=== PATIENT | male | born 1955 | race Caucasian/White ===

== ENCOUNTER 2020-05-22 12:47 | Inpatient (IN) ==
[2020-05-22] MEDS ORDERED: DILTIAZEM 25 MG/5 ML VIAL IV ONE ×2 (12:54→17:24)
--- NOTE | 2020-05-22 13:06 | Emergency Department Note ---
Arrhythmia/Palpitations HPI General Chief Complaint: Arrhythmia/Palpitations Stated Complaint: SOB, tachycardia, dizziness Time Seen by Provider: 05/22/20 13:02 Source: patient Mode of arrival: wheelchair Limitations: no limitations History of Present Illness HPI Narrative: Narrative: 64-year old patient presenting to the emergency department the chief complaint of palpitations. Patient describes the palpitations as rapid fluttering in the chest. Patient does have history of irregular heartbeats in the past as well as coronary artery disease. These episodes occur at random, with rapid onset and termination. Patient was assessed for associated symptoms such as dizziness, presyncope, syncope- pt did not have these symptoms; pt did have a feeling of anxiety, current medications were reviewed including potentially illicit substances. Related Data Home Medications Medication Instructions Recorded Confirmed aspirin 81 mg tablet,delayed 81 mg PO QDAY 01/07/17 05/22/20 release cholecalciferol (vitamin D3) 25 1,000 unit PO QDAY 08/10/18 05/22/20 mcg (1,000 unit) capsule Previous Rx's Medication Instructions Recorded insulin syringe-needle U-100 1 mL #100 each 04/15/17 31 gauge x /" carvedilol 3.125 mg tablet 3.125 mg PO BID #180 tab 04/20/19 pen needle, diabetic 32 gauge x #200 each 11/19/19" blood sugar diagnostic #100 each 12/22/19 metformin 1,000 mg tablet 1,000 mg PO BID #180 tab 01/09/20 insulin glargine 100 unit/mL (3 25 unit SUB-Q BID #45 ml 01/23/20 mL) subcutaneous pen atorvastatin 20 mg tablet 20 mg PO QDAY #90 tab 03/15/20 clopidogrel 75 mg tablet 75 mg PO QDAY #90 tab 03/15/20 lisinopril 5 mg tablet 5 mg PO QDAY #30 tab 05/11/20 Allergies Allergy/AdvReac Type Severity Reaction Status Date / Time No Known Drug Allergies Allergy Verified 05/22/20 12:08 Review of Systems ROS ROS Narrative: Narrative: All systems ED: reviewed and negative except as stated. [facility] Narrative Patient History Narrative: Narrative: Medical/Surgical/Family History All Active Problems (Updated 05/23/20 @ 04:07 by Vaibhav Salinas MD) Pneumonia (Acute) Atrial fibrillation with rapid ventricular response (Acute) Respiratory distress (Acute) Tachycardia (Acute) Chronic lumbar pain (Acute) Obesity (BMI 30-39.9) (Chronic) Right shoulder pain (Acute) Orthopnea (Acute) Coronary artery disease (Chronic) Healthcare maintenance (Chronic) Tobacco abuse (Chronic) Hyperlipidemia (Chronic) Hypertension, essential (Chronic) Irregular heart beat (Chronic) DMII (diabetes mellitus, type 2) (Chronic) Medical History (Updated 05/23/20 @ 04:07 by Vaibhav Salinas MD) Coronary artery disease (Chronic) DMII (diabetes mellitus, type 2) (Chronic) Hyperlipidemia (Chronic) Hypertension, essential (Chronic) Irregular heart beat (Chronic) Respiratory distress (Acute) Tachycardia (Acute) Tobacco abuse (Chronic) Surgical History No pertinent past surgical history (Chronic) Family History Mother Arthritis Diabetes Hypertension, essential Father Arthritis Diabetes Hypertension, essential Sister Arthritis Uterine cancer Diabetes Grandmother Cancer Maternal Grandmother Arthritis Paternal Family/Other Brain cancer Uncle Brother Diabetes Heart attack CHF (congestive heart failure) Social History Smoking Status: Current every day smoker Alcohol Intake Frequency: does not drink Substance Use: does not use Exam Narrative Narrative: Narrative: General: Alert, interactive, appropriate Head: Atraumatic, normocephalic Eyes: Extraocular movements intact, sclera anicteric, no conjunctival injection Ears: Pinnae normal, no discharge Mouth: Oral mucosa moist, no acute swelling or evidence of infection Nares: No nasal discharge, patent bilaterally Neck: Trachea midline, full range of motion Chest: Symmetrical chest wall rise, breathing normally; nonlabored respirations Cardiovascular: Patient with excellent perfusion to the extremities, patient was with tachycardia Skin: Patient without area of erythema, patient is without rash, no ascending lymphangitis or lymphadenopathy Extremities: Full range of motion joints, no obvious deformities Neuro: Alert, oriented x3, cranial nerves II through XII grossly intact, patient without lateralizing findings such as weakness, or abnormal reflexes Psychiatric: Normal affect, normal mood General Limitations: no limitations Course Vital Signs Vital signs: Vital Signs Pulse Rate 157 H 05/22/20 12:48 Respiratory Rate 26 H 05/22/20 12:48 Blood Pressure 172/120 05/22/20 12:48 Pulse Oximetry (%) 92 05/22/20 12:48 Temperature 97.7 F 05/23/20 00:02 Pulse Rate 64 05/23/20 02:42 Respiratory Rate 17 05/23/20 02:42 Blood Pressure 140/83 05/23/20 02:00 Pulse Oximetry (%) 96 05/23/20 02:42 MDM MDM Narrative Medical decision making narrative: Narrative: Differential diagnosis considered in this case includes cardiac arrhythmia, cardiomyopathy, panic attacks/anxiety disorder, medication reaction, hypoglycemia, thyrotoxicosis, pheochromocytoma, anemia, and fever. Evaluation included basic laboratories and consideration for potential thyroid evaluation. EKG was obtained also chest x-ray. Holter monitor was considered in the evaluation of this patient. AV chantel reentrant tachycardia, AV reentrant tachycardia, Atrial tachycardia, Inappropriate sinus tachycardia, Sinoatrial chantel reentrant tachycardia, Intraatrial reentrant tachycardia, Junctional ectopic tachycardia, Nonparoxysmal junctional tachycardia, Atrial fibrillation, Atrial flutter, Multifocal AT were considered in the case as this was narrow complex tachycardia. Patient noted to have rate of 155 indeterminate rhythm on initial EKG plan on presentation is to provide 20 mg Cardizem IV patient with significant elevation of his blood pressure as well so he will tolerate the medicine great. Patient in sinus after Cardizem was provided IV. Further evaluation did demonstrate patient had bilateral pneumonia. Patient without significant elevation of his WBC 12.9. Lactate, IVF, Rocephin provided. Patient noted to be hypoxic into the high 80s provided with nasal cannula 2 L. Patient excellent control of his blood sugar also his electrolytes were all normal. Patient without recurrence of his arrhythmia during stay in the emergency department. Discussed the case with Dr. Johnson and the consensus medical opinion is to admit to the hospital. Lab Data Result diagrams: 05/22/20 13:29 05/22/20 13:29 Labs: Lab Results 05/22/20 05/22/20 05/22/20 Range/Units 13:27 13:29 13:29 WBC 12.9 H (4.5-11.0) K/mcL RBC 5.36 (4.50-5.90) M/mcL Hgb 15.4 (13.5-16.5) g/dL Hct 48.4 (41.0-55.0) % MCV 90.3 (80.0-100.0) fL MCH 28.7 (26.0-34.0) pg MCHC 31.8 (31.0-36.0) g/dL RDW 14.0 (11.5-14.5) % Plt Count 333 (140-440) K/mcL MPV 10.8 H (7.4-10.4) fL Neut % (Auto) 63.0 (38.0-78.0) % Lymph % (Auto) 26.3 (15.0-49.0) % [place]ha % (Auto) 7.6 (1.0-12.0) % Eos % (Auto) 2.7 (0.0-7.0) % Baso % (Auto) 0.4 (0.0-2.0) % Lymph # (Auto) 3.40 (1.50-4.80) K/mcL [place]ha # (Auto) 0.98 H (0.10-0.90) K/mcL Eos # (Auto) 0.35 (0.00-0.70) K/mcL Baso # (Auto) 0.05 (0.00-0.20) K/mcL Absolute Neutrophils 8.14 H (1.80-8.00) K/mcL PT 11.9 (11.9-14.5) sec INR 0.8 L (0.9-1.1) VBG Lactic Acid 2.0 (0.5-2.0) mmol/L Sodium (133-145) mmol/L Potassium (3.3-5.1) mmol/L Chloride (96-108) mmol/L Carbon Dioxide (22-30) mmol/L Anion Gap (8.0-16.0) BUN (8-23) mg/dL Creatinine (0.7-1.2) mg/dL GFR Calculation Glucose (70-105) mg/dL Calcium (8.6-10.4) mg/dL Total Bilirubin (0.1-1.0) mg/dL AST (<40) U/L ALT (<40) U/L Alkaline Phosphatase (39-117) U/L Troponin T (<0.03) ng/mL NT-Pro-B Natriuret Pep (<125.0) pg/mL Total Protein (5.9-8.4) gm/dL Albumin (3.2-5.2) gm/dL Globulin (2.2-3.7) gm/dL Albumin/Globulin Ratio (1.0-2.3) SARS-CoV-2 (PCR) (Negative) 05/22/20 05/22/20 05/22/20 Range/Units 13:29 13:29 13:58 WBC (4.5-11.0) K/mcL RBC (4.50-5.90) M/mcL Hgb (13.5-16.5) g/dL Hct (41.0-55.0) % MCV (80.0-100.0) fL MCH (26.0-34.0) pg MCHC (31.0-36.0) g/dL RDW (11.5-14.5) % Plt Count (140-440) K/mcL MPV (7.4-10.4) fL Neut % (Auto) (38.0-78.0) % Lymph % (Auto) (15.0-49.0) % Desha % (Auto) (1.0-12.0) % Eos % (Auto) (0.0-7.0) % Baso % (Auto) (0.0-2.0) % Lymph # (Auto) (1.50-4.80) K/mcL [place]ha # (Auto) (0.10-0.90) K/mcL Eos # (Auto) (0.00-0.70) K/mcL Baso # (Auto) (0.00-0.20) K/mcL Absolute Neutrophils (1.80-8.00) K/mcL PT (11.9-14.5) sec INR (0.9-1.1) VBG Lactic Acid (0.5-2.0) mmol/L Sodium 138 (133-145) mmol/L Potassium 4.5 (3.3-5.1) mmol/L Chloride 100 (96-108) mmol/L Carbon Dioxide 25 (22-30) mmol/L Anion Gap 13.0 (8.0-16.0) BUN 13 (8-23) mg/dL Creatinine 1.1 (0.7-1.2) mg/dL GFR Calculation 70 Glucose 89 (70-105) mg/dL Calcium 9.3 (8.6-10.4) mg/dL Total Bilirubin 0.3 (0.1-1.0) mg/dL AST 19 (<40) U/L ALT 18 (<40) U/L Alkaline Phosphatase 103 (39-117) U/L Troponin T < 0.01 (<0.03) ng/mL NT-Pro-B Natriuret Pep 678.1 H (<125.0) pg/mL Total Protein 7.4 (5.9-8.4) gm/dL Albumin 3.9 (3.2-5.2) gm/dL Globulin 3.5 (2.2-3.7) gm/dL Albumin/Globulin Ratio 1.1 (1.0-2.3) SARS-CoV-2 (PCR) Negative (Negative) Discharge Plan Patient/Caregiver Discharge Instructions Pt seen by PROJECT MANAGER/PA only: No Clinical Impression: Pneumonia, Atrial fibrillation with rapid ventricular response Patient Disposition: Xfer As Inpt ([facility]) Condition: Fair Discharge Date/Time: 05/22/20 18:50
--- NOTE | 2020-05-22 13:38 | XRay Report ---
HISTORY: Shortness of breath, tachycardia, dizziness and prior heart attack FINDINGS: Mild alveolar infiltrates are present in both lower lobes, right greater than left. This partially surrounds the john. Lung volumes are normal. There is no lobar consolidation or pleural effusion. The heart size is normal. There is no pulmonary vascular congestion. IMPRESSION: Mild bilateral pneumonia Interpreted and Authenticated by: Margarito Galvan 05/22/20
[2020-05-22 14:06] LABS: Basophils # (Auto) 0.05 K/mcL (0.00-0.20); Basophils % (Auto) 0.4 % (0.0-2.0); Eosinophils # (Auto) 0.35 K/mcL (0.00-0.70); Eosinophils % (Auto) 2.7 % (0.0-7.0); Hematocrit 48.4 % (41.0-55.0); Hemoglobin 15.4 g/dL (13.5-16.5); Lymphocytes % (Auto) 26.3 % (15.0-49.0); Mean Cell Volume 90.3 fL (80.0-100.0); Mean Corpuscular HGB Conc 31.8 g/dL (31.0-36.0); Mean Platelet Volume 10.8 fL (7.4-10.4); Monocytes # (Auto) 0.98 K/mcL (0.10-0.90); Monocytes % (Auto) 7.6 % (1.0-12.0); Platelet Count 333 K/mcL (140-440); RBC 5.36 M/mcL (4.50-5.90); WBC 12.9 K/mcL (4.5-11.0)
[2020-05-22 14:32] LABS: proBNP 678.1 pg/mL (<125.0)
[2020-05-22 14:34] LABS: ALT/SGPT 18 U/L (<40); AST/SGOT 19 U/L (<40); Albumin 3.9 gm/dL (3.2-5.2); Albumin/Globulin Ratio 1.1 (1.0-2.3); Alkaline Phosphatase 103 U/L (39-117); Bilirubin,Total 0.3 mg/dL (0.1-1.0); Blood Urea Nitrogen 13 mg/dL (8-23); Calcium 9.3 mg/dL (8.6-10.4); Carbon Dioxide 25 mmol/L (22-30); Chloride 100 mmol/L (96-108); Globulin 3.5 gm/dL (2.2-3.7); Glomerular Filtration Rate 70; Glucose 89 mg/dL (70-105)
[2020-05-22 14:35] LABS: INR 0.8 (0.9-1.1); Prothrombin Time 11.9 sec (11.9-14.5)
[2020-05-22] MEDS ORDERED: cefTRIAXone 2 GM VIAL IV ONE (15:13)
[2020-05-22] MEDS ORDERED: 0.9 % SODIUM CHLORIDE 1,000 ML IV ONE (15:13)
--- NOTE | 2020-05-22 16:12 | Internal Med History&Physical ---
HPI History of Present Illness Patient information: Note initiated : 05/22/20 at 4:12 pm Service Date, if different from initiated Date: [] Patient: Adina Guerrero a 64 y/o M admitted on for SOB, Tachycardia, Dizziness. Chief Complaint: Shortness of breath, cough weakness History of present illness: Mr. Guerrero is a 64 year old M with a history of half pack a day smoker/CAD/DM type II/HTN/A. fib who presents to the ER with 2 days onset of worsening shortness of breath/cough and generalized malaise and palpitations. Symptoms have progressed limiting patient's ADLs. With profound weakness and malaise he presents to the ER Initial work-up was consistent with A. fib RVR with heart rate around 150s/chest imaging bilateral pneumonia and elevated white count. Patient was started on diltiazem with improvement in tachycardia to 100. Patient was started on antibiotic coverage. Covid negative. Subsequently hospitalist service was consulted for admission. At the time of evaluation patient is alert but in moderate discomfort from shortness of breath. He is currently on 2 L oxygen. He was able to answer most of the questions. He denies exposure to sick contact but endorses to symptoms above. Denies headache, photophobia, chest pain, dysuria, diarrhea. He further denies rash/neck stiffness, myalgias. He further denies shaking chills Review of systems 10 point review system was performed and is negative except for ones discussed above PFSH PFSH All Active Problems (Updated 05/23/20 @ 04:07 by Vaibhav Salinas MD) Pneumonia (Acute) Atrial fibrillation with rapid ventricular response (Acute) Respiratory distress (Acute) Tachycardia (Acute) Chronic lumbar pain (Acute) Obesity (BMI 30-39.9) (Chronic) Right shoulder pain (Acute) Orthopnea (Acute) Coronary artery disease (Chronic) Healthcare maintenance (Chronic) Tobacco abuse (Chronic) Hyperlipidemia (Chronic) Hypertension, essential (Chronic) Irregular heart beat (Chronic) DMII (diabetes mellitus, type 2) (Chronic) Medical History (Updated 05/23/20 @ 04:07 by Vaibhav Salinas MD) Coronary artery disease (Chronic) DMII (diabetes mellitus, type 2) (Chronic) Hyperlipidemia (Chronic) Hypertension, essential (Chronic) Irregular heart beat (Chronic) Respiratory distress (Acute) Tachycardia (Acute) Tobacco abuse (Chronic) Surgical History No pertinent past surgical history (Chronic) Family History Mother Arthritis Diabetes Hypertension, essential Father Arthritis Diabetes Hypertension, essential Sister Arthritis Uterine cancer Diabetes Grandmother Cancer Maternal Grandmother Arthritis Paternal Family/Other Brain cancer Uncle Brother Diabetes Heart attack CHF (congestive heart failure) Social History marital status: single smoking status: Current every day smoker tobacco type: cigarettes alcohol intake frequency: does not drink substance use type: does not use MEDS/ALLERGIES Home Medications and Allergies Home Medications Medication Instructions Recorded Confirmed Type aspirin 81 mg tablet,delayed 81 mg PO QDAY 01/07/17 05/22/20 History release insulin syringe-needle U-100 1 mL #100 each 04/15/17 05/22/20 Rx 31 gauge x 5/16" cholecalciferol (vitamin D3) 25 1,000 unit PO QDAY 08/10/18 05/22/20 History mcg (1,000 unit) capsule carvedilol 3.125 mg tablet 3.125 mg PO BID #180 tab 04/20/19 05/22/20 Rx pen needle, diabetic 32 gauge x #200 each 11/19/19 05/22/20 Rx 5/32" blood sugar diagnostic #100 each 12/22/19 05/22/20 Rx metformin 1,000 mg tablet 1,000 mg PO BID #180 tab 01/09/20 05/22/20 Rx insulin glargine 100 unit/mL (3 25 unit SUB-Q BID #45 ml 01/23/20 05/22/20 Rx mL) subcutaneous pen atorvastatin 20 mg tablet 20 mg PO QDAY #90 tab 03/15/20 05/22/20 Rx clopidogrel 75 mg tablet 75 mg PO QDAY #90 tab 03/15/20 05/22/20 Rx lisinopril 5 mg tablet 5 mg PO QDAY #30 tab 05/11/20 05/22/20 Rx Allergies Allergy/AdvReac Type Severity Reaction Status Date / Time No Known Drug Allergies Allergy Verified 05/22/20 12:08 EXAM Constitutional Vitals: Alert oriented but anxious Head normocephalic Oral cavity moist No ear nose discharge Eye movement symmetrical Neck supple no lymphadenopathy S1-S2 irregular Minimally labored breathing on 2 L oxygen Nondistended nontender abdomen Lower extremity minimal lymphedema, no cyanosis clubbing or joint swelling Skin no suspicious lesion Psych no hallucination Neuro normal higher function Pulse Resp BP Pulse Ox 70 28 H 118/81 98 05/22/20 15:31 05/22/20 16:10 05/22/20 15:31 05/22/20 15:31 DATA Data Completed and Pending Labs: Labs from last 24 hours 05/22/20 05/22/20 05/22/20 13:58 13:29 13:29 WBC RBC Hgb Hct MCV MCH MCHC RDW Plt Count MPV Neut % (Auto) Lymph % (Auto) [place] % (Auto) Eos % (Auto) Baso % (Auto) Lymph # (Auto) [place] # (Auto) Eos # (Auto) Baso # (Auto) Absolute Neutrophils PT INR VBG Lactic Acid Sodium 138 Potassium 4.5 Chloride 100 Carbon Dioxide 25 Anion Gap 13.0 BUN 13 Creatinine 1.1 GFR Calculation 70 Glucose 89 Calcium 9.3 Total Bilirubin 0.3 AST 19 ALT 18 Alkaline Phosphatase 103 Troponin T < 0.01 NT-Pro-B Natriuret Pep 678.1 H Total Protein 7.4 Albumin 3.9 Globulin 3.5 Albumin/Globulin Ratio 1.1 SARS-CoV-2 (PCR) Negative 05/22/20 05/22/20 05/22/20 13:29 13:29 13:27 WBC 12.9 H RBC 5.36 Hgb 15.4 Hct 48.4 MCV 90.3 MCH 28.7 MCHC 31.8 RDW 14.0 Plt Count 333 MPV 10.8 H Neut % (Auto) 63.0 Lymph % (Auto) 26.3 [place] % (Auto) 7.6 Eos % (Auto) 2.7 Baso % (Auto) 0.4 Lymph # (Auto) 3.40 [place] # (Auto) 0.98 H Eos # (Auto) 0.35 Baso # (Auto) 0.05 Absolute Neutrophils 8.14 H PT 11.9 INR 0.8 L VBG Lactic Acid 2.0 Sodium Potassium Chloride Carbon Dioxide Anion Gap BUN Creatinine GFR Calculation Glucose Calcium Total Bilirubin AST ALT Alkaline Phosphatase Troponin T NT-Pro-B Natriuret Pep Total Protein Albumin Globulin Albumin/Globulin Ratio SARS-CoV-2 (PCR) A/P Narrative A/P Narrative: * Acute hypoxic respiratory failure secondary to bilateral pneumonia. Supplemental oxygen/pulmonary toilet/aspiration precaution * Bilateral lower lobe pneumonia community-acquired versus aspiration. COVID- 19 negative. Empiric antibiotics on Rocephin/Zithromax. Aspiration precautions/ST eval * Sepsis secondary to above with leukocytosis at 12.9/endorgan dysfunction including A. fib RVR. Continue management per guidelines. Pancultures. * History of hypertension hold RAFFI inhibitor's, continue Coreg with holding parameters. * History of CAD continue Plavix/aspirin/statin/Coreg * DM type II continue basal prandial insulin/CC diet * History of tobacco dependence-nicotine patch/counseled for cessation * Prophylaxis Lovenox Plan * Inpatient PCU admission * Supplemental oxygen/noninvasive ventilation support if indicated * Serial imaging/ABG * Broad antibiotic coverage * Sepsis management guidelines * Cardizem drip for rate control * Pre-existing medical condition management home medications * PT OT nutrition support * Discharge Time Spent With Patient Time: Total time spent is greater than 50% in coordination of care (as documented) at patient's floor/unit and/or counseling patient:
[2020-05-22] MEDS ORDERED: BISACODYL 10 MG SUPP.RECT PR PRN (18:50)
[2020-05-22] MEDS ORDERED: POLYETHYLENE GLYCOL 3350 17 GM PACKET PO PRN (18:50)
[2020-05-22] MEDS ORDERED: DEXTROSE 50% 50 ML VIAL IV PRN (18:50)
[2020-05-22] MEDS ORDERED: POTASSIUM CHLORIDE 20 MEQ PACKET PO PRN (18:50)
[2020-05-22] MEDS ORDERED: POTASSIUM CHLORIDE 40 MEQ in DEXTROSE 5% IN WATER 500 ML IV PRN (18:50)
[2020-05-22] MEDS ORDERED: ACETAMINOPHEN 650 MG/65 ML BOTTLE IV PRN (18:50)
[2020-05-22] MEDS ORDERED: ONDANSETRON 4 MG ODT TABLET SL PRN (18:50)
[2020-05-22] MEDS ORDERED: ACETAMINOPHEN 325 MG TABLET PO PRN (18:50)
[2020-05-22] MEDS ORDERED: MELATONIN 3 MG TABLET PO PRN (18:50)
[2020-05-22] MEDS ORDERED: ONDANSETRON 4 MG/2 ML VIAL IV PRN (18:50)
[2020-05-22] MEDS ORDERED: MAGNESIUM SULFATE 2 GM/50 ML BAG IV PRN (18:50)
[2020-05-22] MEDS ORDERED: DEXTROSE 31 GM ORAL.SUSP PO PRN (18:50)
[2020-05-22] MEDS ORDERED: DILTIAZEM 125 MG in 0.9 % SODIUM CHLORIDE 100 ML IV PRN (19:00)
[2020-05-22] MEDS: INSULIN LISPRO 1 UNIT/0.01 ML UNIT SQ SCH ×2 (19:35→20:02)
[2020-05-22] MEDS: SENNOSIDES/DOCUSATE SODIUM 1 TAB TABLET PO SCH ×2 (20:01→20:17)
[2020-05-22] MEDS: CARVEDILOL 3.125 MG TABLET PO SCH (20:01)
[2020-05-22] MEDS: metFORMIN 500 MG TABLET PO SCH (20:01)
[2020-05-22] MEDS: DOCUSATE SODIUM 100 MG CAPSULE PO SCH ×2 (20:02→20:16)
[2020-05-22] MEDS: INSULIN GLARGINE, HUMAN 1 UNIT/0.01 ML SQ SCH (20:02)
[2020-05-22] MEDS: AZITHROMYCIN 500 MG in DEXTROSE 5% IN WATER 250 ML IV SCH (20:02)
[2020-05-22] MEDS ORDERED: AMIODARONE 150 MG in DEXTROSE 5% IN WATER 50 ML IV ONE (20:34)
[2020-05-22] MEDS ORDERED: AMIODARONE 150 MG/3 ML VIAL IV ONE (20:57)
[2020-05-22 22:23] LABS: Appearance,Urine CLEAR (Clear); Bilirubin,Urine Negative (Negative); Color,Urine YELLOW; Culture Indicated,Urine No; Glucose,Urine (UA) Negative (Negative); Ketones,Urine Negative (Negative); Leukocyte Esterase,Urine Negative /ug (Negative); Mucus,Urine FEW /hpf; Nitrate,Urine Negative (Negative); Protein,Urine >=500 mg/dL (Negative); Specific Gravity,Urine 1.017 (1.000-1.035); Urine Blood Negative (Negative); Urine RBC 0 /hpf (0-1); Urine Squamous Epithelial Cell < 1 /hpf (0-4); Urine WBC 1 /hpf (0-4); Urobilinogen,Urine Negative
[2020-05-22] MEDS: 0.9 % SODIUM CHLORIDE 10 ML SYRINGE IV SCH (22:23)
[2020-05-23] MEDS: 0.9 % SODIUM CHLORIDE 10 ML SYRINGE IV SCH ×3 (05:55→21:11)
[2020-05-23 06:32] LABS: Basophils # (Auto) 0.05 K/mcL (0.00-0.20); Basophils % (Auto) 0.5 % (0.0-2.0); Eosinophils % (Auto) 2.9 % (0.0-7.0); Hematocrit 42.5 % (41.0-55.0); Hemoglobin 13.2 g/dL (13.5-16.5); Lymphocytes # (Auto) 3.25 K/mcL (1.50-4.80); Mean Cell Volume 92.2 fL (80.0-100.0); Mean Corpuscular HGB Conc 31.1 g/dL (31.0-36.0); Mean Platelet Volume 10.8 fL (7.4-10.4); Monocytes # (Auto) 0.94 K/mcL (0.10-0.90); Neutrophils % (Auto) 56.6 % (38.0-78.0); Platelet Count 257 K/mcL (140-440); RBC 4.61 M/mcL (4.50-5.90); Red Cell Distribution Width 14.3 % (11.5-14.5); WBC 10.5 K/mcL (4.5-11.0)
[2020-05-23] MEDS: INSULIN LISPRO 1 UNIT/0.01 ML UNIT SQ SCH ×4 (07:34→21:01)
[2020-05-23 07:41] LABS: ALT/SGPT 15 U/L (<40); AST/SGOT 17 U/L (<40); Albumin 3.4 gm/dL (3.2-5.2); Albumin/Globulin Ratio 1.1 (1.0-2.3); Alkaline Phosphatase 85 U/L (39-117); Bilirubin,Direct < 0.2 mg/dL (<0.3); Bilirubin,Total 0.3 mg/dL (0.1-1.0); Blood Urea Nitrogen 17 mg/dL (8-23); Calcium 8.7 mg/dL (8.6-10.4); Carbon Dioxide 22 mmol/L (22-30); Chloride 104 mmol/L (96-108); Globulin 3.1 gm/dL (2.2-3.7); Glomerular Filtration Rate 78; Glucose 77 mg/dL (70-105); Lactate Dehydrogenase 180 U/L (135-225); Phosphorous 4.5 mg/dL (2.5-4.5); Triglycerides 127 mg/dL (<150); Uric Acid 6.9 mg/dL (2.5-8.0)
[2020-05-23] MEDS: metFORMIN 500 MG TABLET PO SCH ×2 (07:54→17:35)
[2020-05-23] MEDS: CARVEDILOL 3.125 MG TABLET PO SCH ×2 (07:54→17:35)
[2020-05-23] MEDS: MAGNESIUM SULFATE 2 GM/50 ML BAG IV PRN (08:27)
[2020-05-23] MEDS ORDERED: AMIODARONE 360 MG in PREMIX 1 BAG IV SCH (08:30)
[2020-05-23] MEDS: ENOXAPARIN 40 MG/0.4 ML SYRINGE SQ SCH (08:59)
[2020-05-23] MEDS: sitaGLIPtin 100 MG TABLET PO SCH (09:00)
[2020-05-23] MEDS: CLOPIDOGREL 75 MG TABLET PO SCH (09:00)
[2020-05-23] MEDS: DOCUSATE SODIUM 100 MG CAPSULE PO SCH ×2 (09:00→21:01)
[2020-05-23] MEDS: ASPIRIN 81 MG TAB.CHEW PO SCH (09:00)
[2020-05-23] MEDS ORDERED: DEXAMETHASONE 4 MG TABLET PO SCH (09:00)
[2020-05-23] MEDS: ATORVASTATIN 20 MG TABLET PO SCH (09:00)
[2020-05-23] MEDS: VITAMIN D3 1,000 UNIT TABLET PO SCH (09:00)
[2020-05-23] MEDS: INSULIN GLARGINE, HUMAN 1 UNIT/0.01 ML SQ SCH ×2 (09:01→21:11)
[2020-05-23] MEDS: LISINOPRIL 5 MG TABLET PO SCH (09:16)
[2020-05-23] MEDS: cefTRIAXone 2 GM in DEXTROSE 5% IN WATER 50 ML IV SCH (09:51)
--- NOTE | 2020-05-23 10:50 | Internal Med Progress Note ---
SUBJECTIVE Subjective Patient information: Note initiated : 05/23/20 at 10:45 am Service Date, if different from initiated Date: [] Patient: Adina Guerrero 64 y/o M admitted on 05/22/20 for SOB, Tachycardia, Dizziness. Chief Complaint: Interval history: History of present illness: Mr. Guerrero is a 64 year old M with a history of half pack a day smoker/CAD/DM type II/HTN/A. fib who presents to the ER with 2 days onset of worsening shortness of breath/cough and generalized malaise and palpitations. Symptoms have progressed limiting patient's ADLs. With profound weakness and malaise he presents to the ER Initial work-up was consistent with A. fib RVR with heart rate around 150s/chest imaging bilateral pneumonia and elevated white count. Patient was started on diltiazem with improvement in tachycardia to 100. Patient was started on ant ibiotic coverage. Covid negative. Subsequently hospitalist service was consulted for admission. At the time of evaluation patient is alert but in moderate discomfort from shortness of breath. He is currently on 2 L oxygen. He was able to answer most of the questions. He denies exposure to sick contact but endorses to symptoms above. Denies headache, photophobia, chest pain, dysuria, diarrhea. He further denies rash/neck stiffness, myalgias. He further denies shaking chills Responded to nurse called with patient experiencing episodes of ventricular tachycardia. Patient was started on amiodarone. Denies diaphoresis, chest pain, headache or lightheadedness. Max rate 155. Responded well to amiodarone. Continue close monitoring. Following administration of amiodarone patient converted to sinus. Continue close ICU monitoring. Remains high risk recurrent V. tach. 05/23-patient did well overnight however recurrent runs of V. tach/wide-complex tachycardia. Complete amiodarone load. Covid negative. White count down from 12.9-10.5. On antibiotic coverage. Feeling better than last night. Denies chest pain diaphoresis. Creatinine 1. Bilateral pneumonia on chest imaging. Check troponins today. Reviewed EKG Constitutional Vitals: Vital Signs Temp Pulse Resp BP Pulse Ox 98.7 F 70 21 142/82 97 05/23/20 04:01 05/23/20 04:39 05/23/20 04:39 05/23/20 04:01 05/23/20 04:39 Period Temp Pulse Resp BP Sys/Walls Pulse Ox Last 24 Hr 97.3 F-98.7 F 64-158 13-29 116-172/67-120 89-100 Intake and Output 05/22/20 05/23/20 05/23/20 21:59 05:59 13:59 Intake Total 1000 Output Total 100 200 50 Balance 900 -200 -50 Weight 100.289 kg Alert and oriented No anxiety Nonlabored breathing Nondistended abdomen Telemetry wide-complex tachycardia Intake & Output: Intake & Output 05/22/20 05/23/20 05/23/20 21:59 05:59 13:59 Intake Total 1000 Output Total 100 200 50 Balance 900 -200 -50 Weight 100.289 kg Intake: IV 1000 Sodium Chloride 0.9% 1,000 ml @ 1000 Wide Open IV [facility] Rx#: [id number] Output: Urine Catheter Amount 200 Void Amount 100 50 Other: Urine Appearance Clear Clear Urine Color Light Aria Dark Yellow # Voids 1 OBJ DATA Labs CBC & Chem 7: 05/23/20 05:33 05/23/20 05:32 Labs: Abnormal Lab Results 05/23/20 05/22/20 05/22/20 05:33 21:12 13:29 WBC Hgb 13.2 L MPV 10.8 H [place] # (Auto) 0.94 H Absolute Neutrophils INR NT-Pro-B Natriuret Pep 678.1 H Urine Protein >=500 A Urine Mucus Few A 05/22/20 05/22/20 13:29 13:29 WBC 12.9 H Hgb MPV 10.8 H [place] # (Auto) 0.98 H Absolute Neutrophils 8.14 H INR 0.8 L NT-Pro-B Natriuret Pep Urine Protein Urine Mucus Meds: Medications Acetaminophen (Tylenol) 650 mg PO Q4-6HP PRN; Protocol PRN Reason: Per Pain Protocol/Fever > 101 Aspirin (Aspirin) 81 mg PO QDAY [facility] Last Admin: 05/23/20 09:00 Dose: 81 mg Documented by: Atorvastatin Calcium (Lipitor) 20 mg PO QDAY [facility] Last Admin: 05/23/20 09:00 Dose: 20 mg Documented by: Bisacodyl (Dulcolax) 10 mg [place] Q2-3DAYS PRN PRN Reason: Constipation Carvedilol (Coreg) 3.125 mg PO BIDCC [facility] Last Admin: 05/23/20 07:54 Dose: 3.125 mg Documented by: Clopidogrel Bisulfate (Plavix) 75 mg PO QDAY [facility] Last Admin: 05/23/20 09:00 Dose: 75 mg Documented by: Dextrose (Dextrose 50%) 0 ml IV UD PRN PRN Reason: Hypoglycemia Diagnostic Test (Pha) (Accu-Chek) 1 each FS ACHS [facility] Last Admin: 05/23/20 07:34 Dose: 1 each Documented by: Docusate Sodium (Colace) 100 mg PO BID [facility] Last Admin: 05/23/20 09:00 Dose: 100 mg Documented by: Enoxaparin Sodium (Lovenox) 40 mg SQ DAILY [facility] Last Admin: 05/23/20 08:59 Dose: 40 mg Documented by: Glucose (Insta-Glucose) 15 gm PO PRN PRN PRN Reason: Hypoglycemia Ceftriaxone Sodium 2 gm/ (Dextrose) 50 mls @ 100 mls/hr IV Q24H [facility]; Protocol Last Admin: 05/23/20 09:51 Dose: 100 mls/hr Documented by: Diltiazem HCl 125 mg/ Sodium (Chloride) 125 mls @ 5 mls/hr IV Q12H PRN; Protocol PRN Reason: HR/AFIB>130 Azithromycin 500 mg/ Dextrose 250 mls @ 250 mls/hr IV Q24H [facility]; Protocol Stop: 05/24/20 19:49 Last Admin: 05/22/20 20:02 Dose: 250 mls/hr Documented by: Potassium Chloride 40 meq/ (Dextrose) 520 mls @ 130 mls/hr IV UD PRN PRN Reason: K+ = or < 3.5 Acetaminophen (Ofirmev) 650 mg in 65 mls @ 130 mls/hr IV Q6HP PRN; Protocol PRN Reason: Per Pain Protocol/Fever > 101 Magnesium Sulfate (Magnesium Sulfate) 2 gm in 50 mls @ 50 mls/hr IV UD PRN PRN Reason: MG = or < 1.7 Last Admin: 05/23/20 08:27 Dose: 50 mls/hr Documented by: AMIODARONE 360 mg/ Premix 200 mls @ 33.333 mls/hr IV .Q6H [facility]; Protocol Stop: 05/23/20 14:29 Last Admin: 05/23/20 09:01 Dose: 1 mg/min, 33.333 mls/hr Documented by: AMIODARONE 360 mg/ Premix 200 mls @ 16.667 mls/hr IV .Q12H [facility]; Protocol Stop: 05/24/20 08:29 Insulin Glargine (Lantus) 25 unit SQ BID [facility] Last Admin: 05/23/20 09:01 Dose: 25 units Documented by: Insulin Human Lispro (Humalog) 0 unit SQ ACHS [facility]; Protocol Last Admin: 05/23/20 07:34 Dose: Not Given Documented by: Lisinopril (Zestril) 5 mg PO QDAY [facility] Last Admin: 05/23/20 09:16 Dose: Not Given Documented by: Melatonin (Melatonin 3mg Tablet) 3 mg PO HSP PRN PRN Reason: Insomnia Metformin HCl (Glucophage) 1,000 mg PO BIDCC [facility] Last Admin: 05/23/20 07:54 Dose: 1,000 mg Documented by: Metoprolol Tartrate (Lopressor) 5 mg IV Q5M PRN PRN Reason: Heart Rate > 140 bpm Ondansetron HCl (Zofran Odt) 4 mg SL Q4-6HP PRN; Protocol PRN Reason: Nausea And Vomiting Ondansetron HCl (Zofran) 4 mg IV Q4-6HP PRN; Protocol PRN Reason: Nausea And Vomiting Polyethylene Glycol (Miralax) 17 gm PO DAILYP PRN PRN Reason: Constipation Potassium Chloride (Klor-Con) 40 meq PO DAILYP PRN PRN Reason: K+ < 3.5 Senna/Docusate Sodium (Senna Plus Tablet) 1 tab PO HS [facility] Last Admin: 05/22/20 20:17 Dose: Not Given Documented by: Sitagliptin Phosphate (Januvia) 100 mg PO DAILY [facility] Last Admin: 05/23/20 09:00 Dose: 100 mg Documented by: Sodium Chloride (Saline Flush) 10 ml IV Q8 [facility] Last Admin: 05/23/20 05:55 Dose: 10 ml Documented by: Vitamin D (Vitamin D3) 1,000 unit PO QDAY [facility] Last Admin: 05/23/20 09:00 Dose: 1,000 unit Documented by: A/P Narrative A/P Narrative: * Acute hypoxic respiratory failure secondary to bilateral pneumonia. Cantu pplemental oxygen/pulmonary toilet/aspiration precaution * Bilateral lower lobe pneumonia community-acquired versus aspiration. COVID- 19 negative. Empiric antibiotics on Rocephin/Zithromax. Aspiration precautions/ST eval * Wide-complex tachycardia on amiodarone load. Check troponin/echocardiogram. * Sepsis secondary to above with leukocytosis at 12.9/endorgan dysfunction including A. fib RVR. Continue management per guidelines. Pancultures. * History of hypertension hold RAFFI inhibitor's, continue Coreg with holding parameters. * History of CAD continue Plavix/aspirin/statin/Coreg * DM type II continue basal prandial insulin/CC diet * History of tobacco dependence-nicotine patch/counseled for cessation * Prophylaxis Lovenox Plan * Amiodarone load/ICU care * Continue supplemental oxygen * Serial imaging/ABG * Troponin/echocardiogram * Broad antibiotic coverage * Pre-existing medical condition management home medications * PT OT nutrition support * Discharge planning Critical care time spent on management of V. tach/hypoxia respiratory failure/bilateral pneumonia in excess of 35 minutes Time Spent With Patient Time: Total time spent is greater than 50% in coordination of care (as documented) at patient's floor/unit and/or counseling patient: QUALITY VTE Deep Vein Thrombosis/Pulmonary Embolism Present on Admission: No
[2020-05-23] MEDS: AMIODARONE 360 MG in PREMIX 1 BAG IV SCH (15:00)
[2020-05-23] MEDS: AZITHROMYCIN 500 MG in DEXTROSE 5% IN WATER 250 ML IV SCH (15:00)
[2020-05-23] MEDS: SENNOSIDES/DOCUSATE SODIUM 1 TAB TABLET PO SCH (21:02)
[2020-05-24] MEDS: AMIODARONE 360 MG in PREMIX 1 BAG IV SCH (01:42)
[2020-05-24] MEDS: 0.9 % SODIUM CHLORIDE 10 ML SYRINGE IV SCH ×3 (05:22→21:40)
[2020-05-24 06:43] LABS: Basophils # (Auto) 0.05 K/mcL (0.00-0.20); Basophils % (Auto) 0.5 % (0.0-2.0); Eosinophils # (Auto) 0.36 K/mcL (0.00-0.70); Eosinophils % (Auto) 3.3 % (0.0-7.0); Hematocrit 41.8 % (41.0-55.0); Lymphocytes # (Auto) 3.04 K/mcL (1.50-4.80); Lymphocytes % (Auto) 28.1 % (15.0-49.0); Mean Cell Volume 93.5 fL (80.0-100.0); Mean Corpuscular HGB Conc 31.1 g/dL (31.0-36.0); Mean Platelet Volume 10.7 fL (7.4-10.4); Monocytes # (Auto) 0.94 K/mcL (0.10-0.90); Monocytes % (Auto) 8.7 % (1.0-12.0); Neutrophils % (Auto) 59.4 % (38.0-78.0); Platelet Count 271 K/mcL (140-440); RBC 4.47 M/mcL (4.50-5.90); Red Cell Distribution Width 14.3 % (11.5-14.5); WBC 10.8 K/mcL (4.5-11.0)
[2020-05-24 07:09] LABS: ALT/SGPT 14 U/L (<40); AST/SGOT 15 U/L (<40); Albumin 3.5 gm/dL (3.2-5.2); Albumin/Globulin Ratio 1.3 (1.0-2.3); Alkaline Phosphatase 79 U/L (39-117); Bilirubin,Direct < 0.2 mg/dL (<0.3); Bilirubin,Total 0.2 mg/dL (0.1-1.0); Blood Urea Nitrogen 20 mg/dL (8-23); Calcium 8.4 mg/dL (8.6-10.4); Carbon Dioxide 26 mmol/L (22-30); Chloride 101 mmol/L (96-108); Globulin 2.8 gm/dL (2.2-3.7); Glomerular Filtration Rate 63; Glucose 113 mg/dL (70-105); Lactate Dehydrogenase 158 U/L (135-225); Phosphorous 3.8 mg/dL (2.5-4.5); Triglycerides 122 mg/dL (<150)
[2020-05-24] MEDS: INSULIN LISPRO 1 UNIT/0.01 ML UNIT SQ SCH ×4 (07:58→21:41)
[2020-05-24] MEDS: CARVEDILOL 3.125 MG TABLET PO SCH ×2 (08:02→17:09)
[2020-05-24] MEDS: DOCUSATE SODIUM 100 MG CAPSULE PO SCH ×2 (08:02→21:42)
[2020-05-24] MEDS: ENOXAPARIN 40 MG/0.4 ML SYRINGE SQ SCH (08:02)
[2020-05-24] MEDS: cefTRIAXone 2 GM in DEXTROSE 5% IN WATER 50 ML IV SCH (08:02)
[2020-05-24] MEDS: INSULIN GLARGINE, HUMAN 1 UNIT/0.01 ML SQ SCH ×2 (08:03→21:39)
[2020-05-24] MEDS: ASPIRIN 81 MG TAB.CHEW PO SCH (08:03)
[2020-05-24] MEDS: CLOPIDOGREL 75 MG TABLET PO SCH (08:03)
[2020-05-24] MEDS: metFORMIN 500 MG TABLET PO SCH ×2 (08:03→17:09)
[2020-05-24] MEDS: VITAMIN D3 1,000 UNIT TABLET PO SCH (08:06)
[2020-05-24] MEDS: ATORVASTATIN 20 MG TABLET PO SCH (08:07)
[2020-05-24] MEDS: sitaGLIPtin 100 MG TABLET PO SCH (08:07)
[2020-05-24] MEDS: LISINOPRIL 5 MG TABLET PO SCH (08:14)
[2020-05-24] MEDS: MAGNESIUM SULFATE 2 GM/50 ML BAG IV PRN (09:00)
--- NOTE | 2020-05-24 09:00 | XRay Report ---
HISTORY: Shortness of breath, tachycardia and dizziness, follow-up pneumonia FINDINGS: Lungs are now clear and well expanded. The bilateral infiltrates seen on 05/22/20 have resolved. The rapid response be more consistent with that of pulmonary edema rather than pneumonia. The heart size is normal. There is no pulmonary vascular congestion or pleural effusion. IMPRESSION: Normal exam Interpreted and Authenticated by: Margarito Galvan 05/24/20
[2020-05-24] MEDS: AZITHROMYCIN 500 MG in DEXTROSE 5% IN WATER 250 ML IV SCH (09:41)
--- NOTE | 2020-05-24 11:02 | Internal Med Progress Note ---
SUBJECTIVE Subjective Patient information: Note initiated : 05/24/20 at 10:58 am Service Date, if different from initiated Date: [] Patient: Adina Guerrero 64 y/o M admitted on 05/22/20 for SOB, Tachycardia, Dizziness. Chief Complaint: [] Interval history: History of present illness: Mr. Guerrero is a 64 year old M with a history of half pack a day smoker/CAD/DM type II/HTN/A. fib who presents to the ER with 2 days onset of worsening shortness of breath/cough and generalized malaise and palpitations. Symptoms have progressed limiting patient's ADLs. With profound weakness and malaise he presents to the ER Initial work-up was consistent with A. fib RVR with heart rate around 150s/chest imaging bilateral pneumonia and elevated white count. Patient was started on diltiazem with improvement in tachycardia to 100. Patient was started on ant ibiotic coverage. Covid negative. Subsequently hospitalist service was consulted for admission. At the time of evaluation patient is alert but in moderate discomfort from shortness of breath. He is currently on 2 L oxygen. He was able to answer most of the questions. He denies exposure to sick contact but endorses to symptoms above. Denies headache, photophobia, chest pain, dysuria, diarrhea. He further denies rash/neck stiffness, myalgias. He further denies shaking chills Responded to nurse called with patient experiencing episodes of ventricular tachycardia. Patient was started on amiodarone. Denies diaphoresis, chest pain, headache or lightheadedness. Max rate 155. Responded well to amiodarone. Continue close monitoring. Following administration of amiodarone patient converted to sinus. Continue close ICU monitoring. Remains high risk recurrent V. tach. 05/23-patient did well overnight however recurrent runs of V. tach/wide-complex tachycardia. Complete amiodarone load. Covid negative. White count down from 12.9-10.5. On antibiotic coverage. Feeling better than last night. Denies chest pain diaphoresis. Creatinine 1. Bilateral pneumonia on chest imaging. Check troponins today. Reviewed EKG 05/24-patient clinically improved. No overnight events. No additional concerns per nursing staff. Status post amiodarone load. No further episodes of V. t ach except for 1 brief episode around midnight. Denies chest discomfort/lightheadedness. On antibiotic coverage for bilateral pneumonia. White count 10.8, interval chest imaging chest infiltrates fully resolved. Anticipate discharge in 24 hours if no further episodes of V. tach. Constitutional Vitals: Vital Signs Temp Pulse Resp BP Pulse Ox 98.1 F 65 22 146/75 93 05/24/20 09:02 05/24/20 03:01 05/24/20 09:02 05/24/20 09:02 05/24/20 09:02 Period Temp Pulse Resp BP Sys/Walls Pulse Ox Last 24 Hr 96.9 F-98.8 F 60-82 04-22 105-149/56-128 91-100 Intake and Output 05/23/20 05/24/20 05/24/20 21:59 05:59 13:59 Intake Total 690 178 642 Output Total 350 300 Balance 340 -122 642 Weight 101.196 kg Alert oriented telemetry intermittent V. tach No anxiety Nondistended abdomen Nonlabored breathing on 2 L oxygen Intake & Output: Intake & Output 05/23/20 05/24/20 05/24/20 21:59 05:59 13:59 Intake Total 690 178 642 Output Total 350 300 Balance 340 -122 642 Weight 101.196 kg Intake: IV 450 178 222 Nexterone 360 mg In Premix 1 200 178 122 Bag @ 0.5 MG/MIN 16.667 mls/hr IV .Q12H [facility] Rx#:[id number] Zithromax 500 mg In Dextrose 5% 250 in Water 250 ml @ 250 mls/hr IV Q24H [facility] Rx#:[id number] Rocephin 2 gm In Dextrose 5% in 50 Water 50 ml @ 100 mls/hr IV Q24H [facility] Rx#:[id number] Oral 240 420 Output: Void Amount 350 300 Other: Meal Dinner Breakfast Percent of Meal Consumed 100% 100% Feeding Ability Independent Urine Appearance Clear Urine Color Bright Yellow Pale Urine Odor Normal # Voids 1 OBJ DATA Labs CBC & Chem 7: 05/24/20 05:25 05/24/20 05:25 Labs: Abnormal Lab Results 05/24/20 05/24/20 05/24/20 05:25 05:25 05:25 WBC RBC 4.47 L Hgb 13.0 L MPV 10.7 H [place] # (Auto) 0.94 H Absolute Neutrophils INR D-Dimer 0.51 H Glucose 113 H Calcium 8.4 L NT-Pro-B Natriuret Pep Urine Protein Urine Mucus 05/23/20 05/22/20 05/22/20 05:33 21:12 13:29 WBC RBC Hgb 13.2 L MPV 10.8 H [place] # (Auto) 0.94 H Absolute Neutrophils INR D-Dimer Glucose Calcium NT-Pro-B Natriuret Pep 678.1 H Urine Protein >=500 A Urine Mucus Few A 05/22/20 05/22/20 13:29 13:29 WBC 12.9 H RBC Hgb MPV 10.8 H [place] # (Auto) 0.98 H Absolute Neutrophils 8.14 H INR 0.8 L D-Dimer Glucose Calcium NT-Pro-B Natriuret Pep Urine Protein Urine Mucus Meds: Medications Acetaminophen (Tylenol) 650 mg PO Q4-6HP PRN; Protocol PRN Reason: Per Pain Protocol/Fever > 101 Aspirin (Aspirin) 81 mg PO QDAY [facility] Last Admin: 05/24/20 08:03 Dose: 81 mg Documented by: Atorvastatin Calcium (Lipitor) 20 mg PO QDAY [facility] Last Admin: 05/24/20 08:07 Dose: 20 mg Documented by: Bisacodyl (Dulcolax) 10 mg [place] Q2-3DAYS PRN PRN Reason: Constipation [facility] Last Admin: 05/24/20 08:02 Dose: 3.125 mg Documented by: Clopidogrel Bisulfate (Plavix) 75 mg PO QDAY [facility] Last Admin: 05/24/20 08:03 Dose: 75 mg Documented by: Dextrose (Dextrose 50%) 0 ml IV UD PRN PRN Reason: Hypoglycemia Diagnostic Test (Pha) (Accu-Chek) 1 each FS ACHS [facility] Last Admin: 05/24/20 07:57 Dose: 1 each Documented by: Docusate Sodium (Colace) 100 mg PO BID [facility] Last Admin: 05/24/20 08:02 Dose: 100 mg Documented by: Enoxaparin Sodium (Lovenox) 40 mg SQ DAILY [facility] Last Admin: 05/24/20 08:02 Dose: 40 mg Documented by: Glucose (Insta-Glucose) 15 gm PO PRN PRN PRN Reason: Hypoglycemia Ceftriaxone Sodium 2 gm/ (Dextrose) 50 mls @ 100 mls/hr IV Q24H [facility]; Protocol Last Infusion: 05/24/20 08:35 Dose: Infused Documented by: Diltiazem HCl 125 mg/ Sodium (Chloride) 125 mls @ 5 mls/hr IV Q12H PRN; P rotocol PRN Reason: HR/AFIB>130 Azithromycin 500 mg/ Dextrose 250 mls @ 250 mls/hr IV Q24H [facility]; Protocol Stop: 05/24/20 19:49 Last Admin: 05/24/20 09:41 Dose: 250 mls/hr Documented by: Potassium Chloride 40 meq/ (Dextrose) 520 mls @ 130 mls/hr IV UD PRN PRN Reason: K+ = or < 3.5 Acetaminophen (Ofirmev) 650 mg in 65 mls @ 130 mls/hr IV Q6HP PRN; Protocol PRN Reason: Per Pain Protocol/Fever > 101 Magnesium Sulfate (Magnesium Sulfate) 2 gm in 50 mls @ 50 mls/hr IV UD PRN PRN Reason: MG = or < 1.7 Last Infusion: 05/24/20 10:00 Dose: Infused Documented by: Insulin Glargine (Lantus) 25 unit SQ BID [facility] Last Admin: 05/24/20 08:03 Dose: 25 units Documented by: Insulin Human Lispro (Humalog) 0 unit SQ ACHS [facility]; Protocol Last Admin: 05/24/20 07:58 Dose: Not Given Documented by: Lisinopril (Zestril) 5 mg PO QDAY [facility] Last Admin: 05/24/20 08:14 Dose: 5 mg Documented by: Melatonin (Melatonin 3mg Tablet) 3 mg PO HSP PRN PRN Reason: Insomnia Metformin HCl (Glucophage) 1,000 mg PO BIDCC [facility] Last Admin: 05/24/20 08:03 Dose: 1,000 mg Documented by: Metoprolol Tartrate (Lopressor) 5 mg IV Q5M PRN PRN Reason: Heart Rate > 140 bpm Ondansetron HCl (Zofran Odt) 4 mg SL Q4-6HP PRN; Protocol PRN Reason: Nausea And Vomiting Last Admin: 05/24/20 08:03 Dose: 4 mg Documented by: Ondansetron HCl (Zofran) 4 mg IV Q4-6HP PRN; Protocol PRN Reason: Nausea And Vomiting Polyethylene Glycol (Miralax) 17 gm PO DAILYP PRN PRN Reason: Constipation Potassium Chloride (Klor-Con) 40 meq PO DAILYP PRN PRN Reason: K+ < 3.5 Senna/Docusate Sodium (Senna Plus Tablet) 1 tab PO HS [facility] Last Admin: 05/23/20 21:02 Dose: Not Given Documented by: Sitagliptin Phosphate (Januvia) 100 mg PO DAILY [facility] Last Admin: 05/24/20 08:07 Dose: 100 mg Documented by: Sodium Chloride (Saline Flush) 10 ml IV Q8 [facility] Last Admin: 05/24/20 05:22 Dose: 10 ml Documented by: Vitamin D (Vitamin D3) 1,000 unit PO QDAY [facility] Last Admin: 05/24/20 08:06 Dose: 1,000 unit Documented by: A/P Narrative A/P Narrative: * Acute hypoxic respiratory failure secondary to bilateral pneumonia. Suppleme ntal oxygen/pulmonary toilet/aspiration precaution * Bilateral lower lobe pneumonia community-acquired versus aspiration. COVID- 19 negative. Empiric antibiotics on Rocephin/Zithromax. Aspiration pr ecautions/ST eval * Wide-complex tachycardia responding well to amiodarone load. Troponin negative. Await echocardiogram. * Sepsis secondary to above with leukocytosis at 12.9/endorgan dysfunction inc luding A. fib RVR. Continue management per guidelines. Pancultures. * History of hypertension hold RAFFI inhibitor's, continue Coreg with holding parameters. * History of CAD continue Plavix/aspirin/statin/Coreg * DM type II continue basal prandial insulin/CC diet * History of tobacco dependence-nicotine patch/counseled for cessation * Prophylaxis Lovenox Plan * DC amiodarone * Continue telemetry monitoring * Await echocardiogram * Continue antibiotic coverage * Pre-existing medical condition management home medications * PT OT nutrition support * Discharge planning likely in 24 hours Time Spent With Patient Time: Total time spent is greater than 50% in coordination of care (as documented) at patient's floor/unit and/or counseling patient: QUALITY VTE Deep Vein Thrombosis/Pulmonary Embolism Present on Admission: No
[2020-05-24] MEDS: SENNOSIDES/DOCUSATE SODIUM 1 TAB TABLET PO SCH (21:40)
[2020-05-25] MEDS: METOPROLOL TARTRATE 5 MG/5 ML VIAL IV PRN ×2 (00:05→09:45)
[2020-05-25] MEDS: 0.9 % SODIUM CHLORIDE 10 ML SYRINGE IV SCH ×3 (05:26→20:47)
[2020-05-25 06:59] LABS: Basophils # (Auto) 0.05 K/mcL (0.00-0.20); Basophils % (Auto) 0.5 % (0.0-2.0); Eosinophils # (Auto) 0.34 K/mcL (0.00-0.70); Eosinophils % (Auto) 3.2 % (0.0-7.0); Hematocrit 44.5 % (41.0-55.0); Hemoglobin 13.5 g/dL (13.5-16.5); Lymphocytes % (Auto) 30.4 % (15.0-49.0); Mean Cell Volume 95.9 fL (80.0-100.0); Mean Corpuscular HGB Conc 30.3 g/dL (31.0-36.0); Mean Platelet Volume 10.7 fL (7.4-10.4); Monocytes # (Auto) 0.96 K/mcL (0.10-0.90); Monocytes % (Auto) 9.1 % (1.0-12.0); Neutrophils % (Auto) 56.8 % (38.0-78.0); Platelet Count 264 K/mcL (140-440); RBC 4.64 M/mcL (4.50-5.90); Red Cell Distribution Width 14.3 % (11.5-14.5); WBC 10.5 K/mcL (4.5-11.0)
[2020-05-25] MEDS: INSULIN LISPRO 1 UNIT/0.01 ML UNIT SQ SCH ×4 (07:04→20:45)
[2020-05-25 07:15] LABS: ALT/SGPT 14 U/L (<40); AST/SGOT 18 U/L (<40); Albumin 3.6 gm/dL (3.2-5.2); Albumin/Globulin Ratio 1.1 (1.0-2.3); Alkaline Phosphatase 81 U/L (39-117); Bilirubin,Direct < 0.2 mg/dL (<0.3); Bilirubin,Total 0.3 mg/dL (0.1-1.0); Blood Urea Nitrogen 19 mg/dL (8-23); Calcium 9.1 mg/dL (8.6-10.4); Carbon Dioxide 23 mmol/L (22-30); Chloride 103 mmol/L (96-108); Globulin 3.2 gm/dL (2.2-3.7); Glomerular Filtration Rate 70; Glucose 82 mg/dL (70-105); Lactate Dehydrogenase 234 U/L (135-225); Phosphorous 3.9 mg/dL (2.5-4.5); Triglycerides 132 mg/dL (<150)
[2020-05-25] MEDS: cefTRIAXone 2 GM in DEXTROSE 5% IN WATER 50 ML IV SCH (08:04)
[2020-05-25] MEDS: CARVEDILOL 3.125 MG TABLET PO SCH ×2 (08:05→16:51)
[2020-05-25] MEDS: CLOPIDOGREL 75 MG TABLET PO SCH (08:05)
[2020-05-25] MEDS: ATORVASTATIN 20 MG TABLET PO SCH (08:05)
[2020-05-25] MEDS: DOCUSATE SODIUM 100 MG CAPSULE PO SCH ×2 (08:05→23:17)
[2020-05-25] MEDS: metFORMIN 500 MG TABLET PO SCH ×2 (08:05→16:45)
[2020-05-25] MEDS: VITAMIN D3 1,000 UNIT TABLET PO SCH (08:05)
[2020-05-25] MEDS: ENOXAPARIN 40 MG/0.4 ML SYRINGE SQ SCH (08:05)
[2020-05-25] MEDS: LISINOPRIL 5 MG TABLET PO SCH (08:05)
[2020-05-25] MEDS: ASPIRIN 81 MG TAB.CHEW PO SCH (08:05)
[2020-05-25] MEDS: sitaGLIPtin 100 MG TABLET PO SCH (08:05)
[2020-05-25] MEDS: INSULIN GLARGINE, HUMAN 1 UNIT/0.01 ML SQ SCH ×2 (08:06→20:46)
--- NOTE | 2020-05-25 14:15 | Internal Med Progress Note ---
SUBJECTIVE Subjective Patient information: Note initiated : 05/25/20 at 2:11 pm Service Date, if different from initiated Date: [] Patient: Adina Guerrero 64 y/o M admitted on 05/22/20 for SOB, Tachycardia, Dizziness. Chief Complaint: [] Interval history: History of present illness: Mr. Guerrero is a 64 year old M with a history of half pack a day smoker/CAD/DM type II/HTN/A. fib who presents to the ER with 2 days onset of worsening shortness of breath/cough and generalized malaise and palpitations. Symptoms have progressed limiting patient's ADLs. With profound weakness and malaise he presents to the ER Initial work-up was consistent with A. fib RVR with heart rate around 150s/chest imaging bilateral pneumonia and elevated white count. Patient was started on diltiazem with improvement in tachycardia to 100. Patient was started on anti biotic coverage. Covid negative. Subsequently hospitalist service was consulted for admission. At the time of evaluation patient is alert but in moderate discomfort from shortness of breath. He is currently on 2 L oxygen. He was able to answer most of the questions. He denies exposure to sick contact but endorses to symptoms above. Denies headache, photophobia, chest pain, dysuria, diarrhea. He further denies rash/neck stiffness, myalgias. He further denies shaking chills Responded to nurse called with patient experiencing episodes of ventricular tachycardia. Patient was started on amiodarone. Denies diaphoresis, chest pain, headache or lightheadedness. Max rate 155. Responded well to amiodarone. Continue close monitoring. Following administration of amiodarone patient converted to sinus. Continue close ICU monitoring. Remains high risk recurrent V. tach. 05/23-patient did well overnight however recurrent runs of V. tach/wide-complex tachycardia. Complete amiodarone load. Covid negative. White count down from 12.9-10.5. On antibiotic coverage. Feeling better than last night. Denies chest pain diaphoresis. Creatinine 1. Bilateral pneumonia on chest imaging. Check troponins today. Reviewed EKG 05/24-patient clinically improved. No overnight events. No additional concerns per nursing staff. Status post amiodarone load. No further episodes of V. ta ch except for 1 brief episode around midnight. Denies chest discomfort/lightheadedness. On antibiotic coverage for bilateral pneumonia. White count 10.8, interval chest imaging chest infiltrates fully resolved. Anticipate discharge in 24 hours if no further episodes of V. tach. 05/25-patient doing well, brief episode of V. tach/a flutter with bundle block. Stabilized on beta-itzel. Transition out of ICU. Continue monitoring for 24 hours. Will likely discharge in 24 hours. Continue beta-itzel, echocardiogram results pending. Constitutional Vitals: Vital Signs Temp Pulse Resp BP Pulse Ox 97.9 F 64 20 147/83 94 05/25/20 11:00 05/25/20 11:00 05/25/20 11:00 05/25/20 11:00 05/25/20 11:00 Period Temp Pulse Resp BP Sys/Walls Pulse Ox Last 24 Hr 96.8 F-98.1 F 64-107 13-24 117-158/61-96 88-99 Intake and Output 05/25/20 05/25/20 05/25/20 05:59 13:59 21:59 Intake Total 680 Output Total 650 100 Balance -650 580 alert oriented Nonlabored breathing No anxiety Tele intermittent wide-complex tachycardia Intake & Output: Intake & Output 05/25/20 05/25/20 05/25/20 05:59 13:59 21:59 Intake Total 680 Output Total 650 100 Balance -650 580 Intake: Oral 680 Output: Void Amount 650 100 Other: Meal Lunch Percent of Meal Consumed 100% Urine Appearance Clear Clear Urine Color Bright Yellow Bright Yellow Urine Odor Normal Stool Color Brown Stool Consistency Soft Formed # Bowel Movements 0 OBJ DATA Labs CBC & Chem 7: 05/25/20 05:28 05/25/20 05:28 Labs: Abnormal Lab Results 05/25/20 05/25/20 05/24/20 05:28 05:28 05:25 RBC Hgb MCHC 30.3 L MPV 10.7 H Archer # (Auto) 0.96 H INR D-Dimer Glucose 113 H Calcium 8.4 L Lactate Dehydrogenase 234 H NT-Pro-B Natriuret Pep Urine Protein Urine Mucus 05/24/20 05/24/20 05/23/20 05:25 05:25 05:33 RBC 4.47 L Hgb 13.0 L 13.2 L MCHC MPV 10.7 H 10.8 H Archer # (Auto) 0.94 H 0.94 H INR D-Dimer 0.51 H Glucose Calcium Lactate Dehydrogenase NT-Pro-B Natriuret Pep Urine Protein Urine Mucus 05/22/20 05/22/20 05/22/20 21:12 13:29 13:29 RBC Hgb MCHC MPV [place] # (Auto) INR 0.8 L D-Dimer Glucose Calcium Lactate Dehydrogenase NT-Pro-B Natriuret Pep 678.1 H Urine Protein >=500 A Urine Mucus Few A Meds: Medications Acetaminophen (Tylenol) 650 mg PO Q4-6HP PRN; Protocol PRN Reason: Per Pain Protocol/Fever > 101 Aspirin (Aspirin) 81 mg PO QDAY [facility] Last Admin: 05/25/20 08:05 Dose: 81 mg Documented by: Atorvastatin Calcium (Lipitor) 20 mg PO QDAY [facility] Last Admin: 05/25/20 08:05 Dose: 20 mg Documented by: Bisacodyl (Dulcolax) 10 mg NH Q2-3DAYS PRN PRN Reason: Constipation [facility]) [facility] Last Admin: 05/25/20 08:05 Dose: 3.125 mg Documented by: Clopidogrel Bisulfate (Plavix) 75 mg PO QDAY [facility] Last Admin: 05/25/20 08:05 Dose: 75 mg Documented by: Dextrose (Dextrose 50%) 0 ml IV UD PRN PRN Reason: Hypoglycemia Diagnostic Test (Pha) (Accu-Chek) 1 each FS ACHS [facility] Last Admin: 05/25/20 11:44 Dose: 1 each Documented by: Docusate Sodium (Colace) 100 mg PO BID [facility] Last Admin: 05/25/20 08:05 Dose: 100 mg Documented by: Enoxaparin Sodium (Lovenox) 40 mg SQ DAILY [facility] Last Admin: 05/25/20 08:05 Dose: 40 mg Documented by: Glucose (Insta-Glucose) 15 gm PO PRN PRN PRN Reason: Hypoglycemia Ceftriaxone Sodium 2 gm/ (Dextrose) 50 mls @ 100 mls/hr IV Q24H [facility]; Protocol Last Admin: 05/25/20 08:04 Dose: 100 mls/hr Documented by: Diltiazem HCl 125 mg/ Sodium (Chloride) 125 mls @ 5 mls/hr IV Q12H PRN; Protocol PRN Reason: HR/AFIB>130 Potassium Chloride 40 meq/ (Dextrose) 520 mls @ 130 mls/hr IV UD PRN PRN Reason: K+ = or < 3.5 Acetaminophen (Ofirmev) 650 mg in 65 mls @ 130 mls/hr IV Q6HP PRN; Protocol PRN Reason: Per Pain Protocol/Fever > 101 Magnesium Sulfate (Magnesium Sulfate) 2 gm in 50 mls @ 50 mls/hr IV UD PRN PRN Reason: MG = or < 1.7 Last Infusion: 05/24/20 10:00 Dose: Infused Documented by: Insulin Glargine (Lantus) 25 unit SQ BID [facility] Last Admin: 05/25/20 08:06 Dose: Not Given Documented by: Insulin Human Lispro (Humalog) 0 unit SQ ACHS [facility]; Protocol Last Admin: 05/25/20 11:45 Dose: Not Given Documented by: Lisinopril (Zestril) 5 mg PO QDAY [facility] Last Admin: 05/25/20 08:05 Dose: 5 mg Documented by: Melatonin (Melatonin 3mg Tablet) 3 mg PO HSP PRN PRN Reason: Insomnia Metformin HCl (Glucophage) 1,000 mg PO BIDCC [facility] Last Admin: 05/25/20 08:05 Dose: 1,000 mg Documented by: Metoprolol Tartrate (Lopressor) 5 mg IV Q5M PRN PRN Reason: Heart Rate > 140 bpm Last Admin: 05/25/20 09:45 Dose: 5 mg Documented by: Ondansetron HCl (Zofran Odt) 4 mg SL Q4-6HP PRN; Protocol PRN Reason: Nausea And Vomiting Last Admin: 05/24/20 08:03 Dose: 4 mg Documented by: Ondansetron HCl (Zofran) 4 mg IV Q4-6HP PRN; Protocol PRN Reason: Nausea And Vomiting Polyethylene Glycol (Miralax) 17 gm PO DAILYP PRN PRN Reason: Constipation Potassium Chloride (Klor-Con) 40 meq PO DAILYP PRN PRN Reason: K+ < 3.5 Senna/Docusate Sodium (Senna Plus Tablet) 1 tab PO [facility] Last Admin: 05/24/20 21:40 Dose: Not Given Documented by: Sitagliptin Phosphate (Januvia) 100 mg PO DAILY [facility] Last Admin: 05/25/20 08:05 Dose: Not Given Documented by: Sodium Chloride (Saline Flush) 10 ml IV Q8 [facility] Last Admin: 05/25/20 14:11 Dose: 10 ml Documented by: Vitamin D (Vitamin D3) 1,000 unit PO QDAY [facility] Last Admin: 05/25/20 08:05 Dose: 1,000 unit Documented by: A/P Narrative A/P Narrative: * Acute hypoxic respiratory failure secondary to bilateral pneumonia. Gradual clinical improvement noted. Continue antibiotic coverage/supplemental oxygen/pulmonary toilet/aspiration precaution * Bilateral lower lobe pneumonia community-acquired versus aspiration. COVID- 19 negative. Clinically improving on Rocephin/Zithromax. Aspiration precautions/ST eval * Wide-complex tachycardia responding well to amiodarone load. Troponin negative. Await echocardiogram. Start extended-release beta-itzel * Sepsis secondary to above clinically improving with downtrending leukocytosis. Improvedendorgan dysfunction. Cultures negative so far. * History of hypertension. Increased Coreg dose * History of CAD continue Plavix/aspirin/statin/Coreg * DM type II continue basal prandial insulin/CC diet * History of tobacco dependence-nicotine patch/counseled for cessation * Prophylaxis Lovenox Plan * Increase Coreg dose * Continue telemetry monitoring * Await echocardiogram * Continue antibiotics * Pre-existing medical condition management home medications * PT OT nutrition support * May discharge in 24 hours if no further runs of RVR/wide-complex tachycardia Time Spent With Patient Time: Total time spent is greater than 50% in coordination of care (as documented) at patient's floor/unit and/or counseling patient: QUALITY VTE Deep Vein Thrombosis/Pulmonary Embolism Present on Admission: No
[2020-05-25] MEDS: SENNOSIDES/DOCUSATE SODIUM 1 TAB TABLET PO SCH (23:18)
[2020-05-26] MEDS: 0.9 % SODIUM CHLORIDE 10 ML SYRINGE IV SCH (05:37)
[2020-05-26 07:20] LABS: Basophils # (Auto) 0.05 K/mcL (0.00-0.20); Basophils % (Auto) 0.5 % (0.0-2.0); Eosinophils # (Auto) 0.33 K/mcL (0.00-0.70); Eosinophils % (Auto) 3.6 % (0.0-7.0); Hematocrit 43.6 % (41.0-55.0); Hemoglobin 13.4 g/dL (13.5-16.5); Lymphocytes # (Auto) 2.69 K/mcL (1.50-4.80); Lymphocytes % (Auto) 29.1 % (15.0-49.0); Mean Cell Volume 93.2 fL (80.0-100.0); Mean Corpuscular HGB Conc 30.7 g/dL (31.0-36.0); Mean Platelet Volume 10.8 fL (7.4-10.4); Monocytes # (Auto) 0.85 K/mcL (0.10-0.90); Monocytes % (Auto) 9.2 % (1.0-12.0); Neutrophils % (Auto) 57.6 % (38.0-78.0); Platelet Count 289 K/mcL (140-440); RBC 4.68 M/mcL (4.50-5.90); Red Cell Distribution Width 14.3 % (11.5-14.5); WBC 9.3 K/mcL (4.5-11.0)
[2020-05-26] MEDS: metFORMIN 500 MG TABLET PO SCH (07:57)
[2020-05-26] MEDS: CARVEDILOL 3.125 MG TABLET PO SCH (07:57)
[2020-05-26] MEDS: INSULIN LISPRO 1 UNIT/0.01 ML UNIT SQ SCH ×2 (08:00→11:53)
[2020-05-26 08:16] LABS: ALT/SGPT 17 U/L (<40); AST/SGOT 19 U/L (<40); Albumin 3.6 gm/dL (3.2-5.2); Albumin/Globulin Ratio 1.2 (1.0-2.3); Alkaline Phosphatase 77 U/L (39-117); Bilirubin,Direct < 0.2 mg/dL (<0.3); Bilirubin,Total 0.2 mg/dL (0.1-1.0); Blood Urea Nitrogen 18 mg/dL (8-23); Calcium 9.4 mg/dL (8.6-10.4); Carbon Dioxide 27 mmol/L (22-30); Chloride 100 mmol/L (96-108); Glomerular Filtration Rate 78; Glucose 79 mg/dL (70-105); Lactate Dehydrogenase 177 U/L (135-225); Phosphorous 4.9 mg/dL (2.5-4.5); Triglycerides 126 mg/dL (<150); Uric Acid 7.3 mg/dL (2.5-8.0)
--- NOTE | 2020-05-26 09:10 | Discharge Summary ---
Discharge Provider Provider Patient information: Note initiated : 05/26/20 at 9:05 am Service Date, if different from initiated Date: [] Patient: Adina Guerrero 64 y/o M admitted on 05/22/20 for SOB, Tachycardia, Dizziness. Discharge diagnosis * Acute hypoxic respiratory failure secondary to bilateral pneumonia/CHF. Clinically improved. Now on 2 L oxygen. Discharging home on home oxygen. * Bilateral lower lobe pneumonia community-acquired versus aspiration. Clinical ly improved on antibiotic coverage. COVID-19 negative. Continue additional 4 days antibiotics. * Wide-complex tachycardia responding well to amiodarone load. Now rate controlled on higher dose extended-release beta-itzel * Sepsis secondary to above clinically resolved with improving endorgan dysfunction. * History of hypertension. Stable on increased dose of Coreg * History of CAD continue Plavix/aspirin/statin/Coreg * DM type II continue basal prandial insulin/CC diet * History of tobacco dependence-nicotine patch/counseled for cessation Brief hospital course Interval history: History of present illness: Mr. Guerrero is a 64 year old M with a history of half pack a day smoker/CAD/DM type II/HTN/A. fib who presents to the ER with 2 days onset of worsening shortness of breath/cough and generalized malaise and palpitations. Symptoms have progressed limiting patient's ADLs. With profound weakness and malaise he presents to the ER Initial work-up was consistent with A. fib RVR with heart rate around 150s/chest imaging bilateral pneumonia and elevated white count. Patient was started on diltiazem with improvement in tachycardia to 100. Patient was started on antibiotic coverage. Covid negative. Subsequently hospitalist service was consulted for admission. At the time of evaluation patient is alert but in moderate discomfort from short ness of breath. He is currently on 2 L oxygen. He was able to answer most of the questions. He denies exposure to sick contact but endorses to symptoms above. Denies headache, photophobia, chest pain, dysuria, diarrhea. He further denies rash/neck stiffness, myalgias. He further denies shaking chills Responded to nurse called with patient experiencing episodes of ventricular tachycardia. Patient was started on amiodarone. Denies diaphoresis, chest pain, headache or lightheadedness. Max rate 155. Responded well to amiodarone. Continue close monitoring. Following administration of amiodarone patient converted to sinus. Continue close ICU monitoring. Remains high risk recurrent V. tach. 05/23-patient did well overnight however recurrent runs of V. tach/wide-complex tachycardia. Complete amiodarone load. Covid negative. White count down from 12.9-10.5. On antibiotic coverage. Feeling better than last night. Denies chest pain diaphoresis. Creatinine 1. Bilateral pneumonia on chest imaging. Check troponins today. Reviewed EKG 05/24-patient clinically improved. No overnight events. No additional concerns per nursing staff. Status post amiodarone load. No further episodes of V. tach except for 1 brief episode around midnight. Denies chest discomfort/lightheadedness. On antibiotic coverage for bilateral pneumonia. White count 10.8, interval chest imaging chest infiltrates fully resolved. Anticipate discharge in 24 hours if no further episodes of V. tach. 05/25-patient doing well, brief episode of V. tach/a flutter with bundle block. Stabilized on beta-itzel. Transition out of ICU. Continue monitoring for 24 hours. Will likely discharge in 24 hours. Continue beta-itzel, echocardiogram results pending. 05/26-patient doing better. No overnight events. Discharging home on antibiotic for additional 4 days. Exercise oximetry for home oxygen qualification. White count stable at 9.3. Date of admission: 05/22/20 18:49 Discharge date: 05/26/20 Primary care physician: German West DO Consults: 05/22/20 16:03 Consult to Physician [CONS] Stat Comment: Consulting Provider: Marcus Andrade Reason For Exam: Physician to Consult Discharge Meds Discharge Medications Home Medications aspirin 81 mg tablet,delayed release 81 mg PO QDAY 01/07/17 [History Confirmed 05/22/20 Last Taken Unknown] insulin syringe-needle U-100 1 mL 31 gauge x 11/11" #100 each 04/15/17 [Rx Confirmed 05/22/20 Last Taken Unknown] cholecalciferol (vitamin D3) 25 mcg (1,000 unit) capsule 1,000 unit PO QDAY 08/10/18 [History Confirmed 05/22/20 Last Taken Unknown] carvedilol 3.125 mg tablet 3.125 mg PO BID #180 tab 04/20/19 [Rx Confirmed 05/22/20 Last Taken Unknown] pen needle, diabetic 32 gauge x 32" #200 each 11/19/19 [Rx Confirmed 05/22/20 Last Taken Unknown] blood sugar diagnostic #100 each 12/22/19 [Rx Confirmed 05/22/20 Last Taken Unknown] metformin 1,000 mg tablet 1,000 mg PO BID #180 tab 01/09/20 [Rx Confirmed 05/22/20 Last Taken Unknown] insulin glargine 100 unit/mL (3 mL) subcutaneous pen 25 unit SUB-Q BID #45 ml 01/23/20 [Rx Confirmed 05/22/20 Last Taken Unknown] atorvastatin 20 mg tablet 20 mg PO QDAY #90 tab 03/15/20 [Rx Confirmed 05/22/20 Last Taken Unknown] clopidogrel 75 mg tablet 75 mg PO QDAY #90 tab 03/15/20 [Rx Confirmed 05/22/20 Last Taken Unknown] lisinopril 5 mg tablet 5 mg PO QDAY #30 tab 05/11/20 [Rx Confirmed 05/22/20 Last Taken Unknown] amoxicillin-pot clavulanate 1 tab PO BID #8 tab 05/26/20 [Rx Last Taken Unknown] carvedilol 6.25 mg PO BIDCC #60 tab 05/26/20 [Rx Last Taken Unknown] COURSE Hospital Course Hospital course: . Discharge diagnosis: . Time Spent with Patient Time attestation: Total time spent providing and/or coordinating discharge s ervices: EXAM Constitutional Vitals: Temp Pulse Resp BP Pulse Ox 97.8 F 61 14 150/80 91 05/26/20 08:01 05/26/20 08:01 05/26/20 08:01 05/26/20 08:01 05/26/20 08:01 Discharge Data Data Completed and Pending Labs on day of discharge: Labs from last 24 hours 05/26/20 05/26/20 05:00 05:00 WBC 9.3 RBC 4.68 Hgb 13.4 L Hct 43.6 MCV 93.2 MCH 28.6 MCHC 30.7 L RDW 14.3 Plt Count 289 MPV 10.8 H Neut % (Auto) 57.6 Lymph % (Auto) 29.1 [place] % (Auto) 9.2 Eos % (Auto) 3.6 Baso % (Auto) 0.5 Lymph # (Auto) 2.69 [place] # (Auto) 0.85 Eos # (Auto) 0.33 Baso # (Auto) 0.05 Absolute Neutrophils 5.33 Sodium 137 Potassium 4.9 Chloride 100 Carbon Dioxide 27 Anion Gap 10.0 BUN 18 Creatinine 1.0 GFR Calculation 78 Glucose 79 Uric Acid 7.3 Calcium 9.4 Phosphorus 4.9 H Magnesium 1.7 Total Bilirubin 0.2 Direct Bilirubin < 0.2 GGT 20 AST 19 ALT 17 Alkaline Phosphatase 77 Lactate Dehydrogenase 177 Total Protein 6.6 Albumin 3.6 Globulin 3.0 Albumin/Globulin Ratio 1.2 Triglycerides 126 Preliminary micro results at discharge 05/22/20 16:45 Blood Culture - Preliminary Blood 05/22/20 16:15 Blood Culture - Preliminary Blood 05/25/20 05:47 Gram Stain - Preliminary Sputum - Induced Sputum Culture - Preliminary Discharge Plan Patient/Caregiver Discharge Instructions Activity: increase activity as tolerated Diet: Consistent Carbohydrate Activity Restrictions/Additional Instructions: RT to qualify for home oxygen antibiotic for additional 4 days Return to ER if worsening fever chills shortness of breath Prescriptions: New carvedilol 3.125 mg Tablet 6.25 mg PO BIDCC Qty: 60 RF: 0 amoxicillin-pot clavulanate 875-125 mg Tablet 1 tab PO BID Qty: 8 RF: 0 Continued (DME) insulin syringe-needle U-100 [BD Insulin Syringe Ult-Fine II] 1 mL 31 gauge x 5/16 syringe See Dose Instructions .ROUTE .MEDSUPPLY MDD twice daily Qty: 100 RF: 7 carvedilol 3.125 mg tablet 3.125 mg PO BID Qty: 180 RF: 4 (DME) pen needle, diabetic [BD Ultra-Fine Chel Pen Needle] 32 gauge x 5/32" needle See Dose Instructions .ROUTE .MEDSUPPLY Qty: 200 RF: 3 (DME) True Metrix Glucose Test Strip Strip See Dose Instructions .ROUTE .MEDSUPPLY Qty: 100 RF: 6 metformin 1,000 mg tablet 1,000 mg PO BID Qty: 180 RF: 1 Lantus Solostar U-100 Insulin 100 unit/mL (3 mL) insulin pen 25 unit SUB-Q BID Qty: 45 RF: 4 atorvastatin 20 mg tablet 20 mg PO QDAY Qty: 90 RF: 1 clopidogrel 75 mg tablet 75 mg PO QDAY Qty: 90 RF: 1 cholecalciferol (vitamin D3) 1,000 unit capsule 1,000 unit PO QDAY RF: 0 lisinopril 5 mg tablet 5 mg PO QDAY Qty: 30 RF: 2 aspirin [Adult Low Dose Aspirin] 81 mg tablet,delayed release (DR/EC) 81 mg PO QDAY RF: 0 Follow Up Plan Follow up with: German West DO [Primary Care Provider] - Patient Disposition: Home, Self-Care Prognosis: Fair Rehab Potential: Fair I certify that the patient requires SNF services: No Overall status at discharge: patient is progressing back to baseline Discharge Orders: Discharge Order (Routine); Ordered 05/26/20 Ordered By: Marcus SCHWARTZ VTE Deep Vein Thrombosis/Pulmonary Embolism Present on Admission: No
[2020-05-26] MEDS: CLOPIDOGREL 75 MG TABLET PO SCH (09:29)
[2020-05-26] MEDS: ATORVASTATIN 20 MG TABLET PO SCH (09:29)
[2020-05-26] MEDS: ASPIRIN 81 MG TAB.CHEW PO SCH (09:29)
[2020-05-26] MEDS: LISINOPRIL 5 MG TABLET PO SCH (09:29)
[2020-05-26] MEDS: DOCUSATE SODIUM 100 MG CAPSULE PO SCH (09:29)
[2020-05-26] MEDS: ENOXAPARIN 40 MG/0.4 ML SYRINGE SQ SCH (09:30)
[2020-05-26] MEDS: VITAMIN D3 1,000 UNIT TABLET PO SCH (09:30)
[2020-05-26] MEDS: cefTRIAXone 2 GM in DEXTROSE 5% IN WATER 50 ML IV SCH (09:30)
[2020-05-26] MEDS: sitaGLIPtin 100 MG TABLET PO SCH (09:30)
[2020-05-26] MEDS: INSULIN GLARGINE, HUMAN 1 UNIT/0.01 ML SQ SCH (09:31)
== END 2020-05-26 11:20 | disposition home or self-care (01) | DRG 871 ==
LOC: ED 12:47 → ICU 18:49
PROVIDERS: ADMIT Internal Medicine; ATTEND Internal Medicine

== ENCOUNTER 2020-06-19 14:26 | Inpatient (IN) ==
[2020-06-19] MEDS ORDERED: 0.9 % SODIUM CHLORIDE 1,000 ML IV ONE (14:43)
[2020-06-19] MEDS ORDERED: ASPIRIN 81 MG TAB.CHEW CHEWED ONE (14:43)
--- NOTE | 2020-06-19 14:52 | Emergency Department Note ---
Arrhythmia/Palpitations HPI General Chief Complaint: Arrhythmia/Palpitations Stated Complaint: tachycardia Time Seen by Provider: 06/19/20 14:43 Source: patient Mode of arrival: wheelchair Limitations: no limitations History of Present Illness HPI Narrative: Narrative: 64-year-old male comes in with asymptomatic tac hycardia. He was actually being seen over at Dr. West's office and was sent over for tachycardia into the 140s and 150s at rest. He is not diaphoretic short of breath or having chest pain. This is happened 1 time before he was admitted to the hospital on 05/22/2020 for bilateral pneumonia and A. fib with RVR. He is not anticoagulated. He has multiple comorbidities. No fever chills nausea vomiting diarrhea difficulty urinating Related Data Home Medications Medication Instructions Recorded Confirmed aspirin 81 mg tablet,delayed 81 mg PO QDAY 01/07/17 06/19/20 release cholecalciferol (vitamin D3) 25 1,000 unit PO QDAY 08/10/18 06/19/20 mcg (1,000 unit) capsule Previous Rx's Medication Instructions Recorded insulin syringe-needle U-100 1 mL #100 each 04/15/17 31 gauge x /16" pen needle, diabetic 32 gauge x #200 each 11/19/19" blood sugar diagnostic #100 each 12/22/19 insulin glargine 100 unit/mL (3 25 unit SUB-Q BID #45 ml 01/23/20 mL) subcutaneous pen atorvastatin 20 mg tablet 20 mg PO QDAY #90 tab 03/15/20 clopidogrel 75 mg tablet 75 mg PO QDAY #90 tab 03/15/20 lisinopril 5 mg tablet 5 mg PO QDAY #30 tab 05/11/20 albuterol sulfate 90 mcg/actuation 2 puff INHALATION Q4H #18 g 06/05/20 aerosol inhaler metformin 1,000 mg tablet 1,000 mg PO BID #180 tab 06/11/20 Nebulizer #1 ea 06/12/20 Nebulizer tubing and spacer #1 ea 06/12/20 carvedilol 3.125 mg tablet 12.5 mg PO BIDCC #60 tab 06/12/20 doxycycline hyclate 100 mg capsule 100 mg PO BID #14 cap 06/12/20 ipratropium 0.5 mg-albuterol 3 mg 3 ml INHALATION Q6H PRN #180 ml 06/12/20 (2.5 mg base)/3 mL nebulization soln Allergies Allergy/AdvReac Type Severity Reaction Status Date / Time No Known Drug Allergies Allergy Verified 06/19/20 14:31 Review of Systems ROS ROS Narrative: Narrative: All systems ED: reviewed and negative except as stated. PFSH Narrative Patient History Narrative: Narrative: Medical/Surgical/Family History All Active Problems (Updated 06/19/20 @ 16:18 by Micah Chapman MD) Acute dehydration (Acute) Hypothyroidism (acquired) (Acute) Hypomagnesemia (Acute) COPD (chronic obstructive pulmonary disease) (Acute) Cerumen impaction (Acute) Transition of care performed with sharing of clinical summary (Acute) Pneumonia (Acute) Atrial fibrillation with rapid ventricular response (Acute) Respiratory distress (Acute) Tachycardia (Acute) Chronic lumbar pain (Acute) Obesity (BMI 30-39.9) (Chronic) Right shoulder pain (Acute) Orthopnea (Acute) Coronary artery disease (Chronic) Healthcare maintenance (Chronic) Tobacco abuse (Chronic) Hyperlipidemia (Chronic) Hypertension, essential (Chronic) Irregular heart beat (Chronic) DMII (diabetes mellitus, type 2) (Chronic) Medical History Coronary artery disease (Chronic) DMII (diabetes mellitus, type 2) (Chronic) Hyperlipidemia (Chronic) Hypertension, essential (Chronic) Irregular heart beat (Chronic) Respiratory distress (Acute) Tachycardia (Acute) Tobacco abuse (Chronic) Surgical History No pertinent past surgical history (Chronic) Family History Mother Arthritis Diabetes Hypertension, essential Father Arthritis Diabetes Hypertension, essential Sister Arthritis Uterine cancer Diabetes Grandmother Cancer Maternal Grandmother Arthritis Paternal Family/Other Brain cancer Uncle Brother Diabetes Heart attack CHF (congestive heart failure) Social History Smoking Status: Current every day smoker Alcohol Intake Frequency: does not drink Substance Use: does not use Exam Narrative Narrative: Narrative: Overweight male no acute distress. Normocephalic atraumatic. Conjunctive are clear sclerae white nonicteric. No nasal discharge or congestion. Oropharynx pink and moist. Neck is supple without lymphade nopathy or thyromegaly. Heart is tachycardic I cannot hear a murmur. Lungs are clear to auscultation bilaterally. Abdomen soft nontender nondistended. No pedal edema. Alert and oriented General Limitations: no limitations Course Vital Signs Vital signs: Vital Signs Temperature 97.7 F 06/19/20 14:26 Pulse Rate 144 H 06/19/20 14:26 Respiratory Rate 22 06/19/20 14:26 Blood Pressure 132/89 06/19/20 14:26 Pulse Oximetry (%) 95 06/19/20 14:26 Temperature 97.7 F 06/19/20 14:26 Pulse Rate 72 06/19/20 16:36 Respiratory Rate 19 06/19/20 16:36 Blood Pressure 124/80 06/19/20 16:32 Pulse Oximetry (%) 93 06/19/20 16:36 MDM MDM Narrative Medical decision making narrative: Narrative: EKG shows tachycardia and this is likely atrial fibrillation or atrial flutter with rapid ventricular response given the whole picture here. However after I saw the patient and examined him, he spontaneously converted while I was putting in orders. We will repeat the EKG. laboratory chest x-ray work-up. Differential diagnosis includes paroxysmal atrial fibrillation or flutter, other tachycardia, pulmonary disease, EKG looks like atrial fibrillation with rapid ventricular response but he spontaneously converted to sinus rhythm. But then he converted back to atrial flutter. We will start him on Cardizem low-dose 5 mg and then put him on a drip. He is already on multiple high blood pressure medicine including lisinopril carvedilol and antiplatelet therapy with aspirin and clopidogrel. Urinalysis [id number] dipstick shows specific gravity 1.030 and trace blood consistent with dehydration. TSH was elevated consistent with mild hypothyroidism. We gave him fluids for the dehydration Laboratory also showed mild leukocytosis and hypomagnesium. We will do a mag rider 1 g. Discussed results with the patient and with the hospitalist Dr. Mcmanus. He agreed to accept the patient for further evaluation and treatment in the hospital PCU. The patient is doing well on Cardizem drip 5; he is staying in sinus rhythm. Lab Data Lab results reviewed: Yes I reviewed the patient's lab results. Result diagrams: 06/19/20 14:48 06/19/20 14:48 Labs: Lab Results 06/19/20 06/19/20 06/19/20 Range/Units 14:48 14:48 14:48 WBC 11.2 H (4.5-11.0) K/mcL RBC 5.01 (4.50-5.90) M/mcL Hgb 14.4 (13.5-16.5) g/dL Hct 44.9 (41.0-55.0) % MCV 89.6 (80.0-100.0) fL MCH 28.7 (26.0-34.0) pg MCHC 32.1 (31.0-36.0) g/dL RDW 14.1 (11.5-14.5) % Plt Count 281 (140-440) K/mcL MPV 10.5 H (7.4-10.4) fL Neut % (Auto) 53.4 (38.0-78.0) % Lymph % (Auto) 35.2 (15.0-49.0) % [place] % (Auto) 8.0 (1.0-12.0) % Eos % (Auto) 2.8 (0.0-7.0) % Baso % (Auto) 0.6 (0.0-2.0) % Lymph # (Auto) 3.95 (1.50-4.80) K/mcL [place] # (Auto) 0.90 (0.10-0.90) K/mcL Eos # (Auto) 0.31 (0.00-0.70) K/mcL Baso # (Auto) 0.07 (0.00-0.20) K/mcL Absolute Neutrophils 5.98 (1.80-8.00) K/mcL D-Dimer 0.54 H (0.27-0.50) ug/mL Sodium 137 (133-145) mmol/L Potassium 4.9 (3.3-5.1) mmol/L Chloride 103 (96-108) mmol/L Carbon Dioxide 20 L (22-30) mmol/L Anion Gap 14.0 (8.0-16.0) BUN 15 (8-23) mg/dL Creatinine 1.1 (0.7-1.2) mg/dL GFR Calculation 70 Glucose 71 (70-105) mg/dL Calcium 9.2 (8.6-10.4) mg/dL Magnesium 1.3 L (1.6-2.5) mg/dL Total Bilirubin 0.3 (0.1-1.0) mg/dL AST 20 (<40) U/L ALT 14 (<40) U/L Alkaline Phosphatase 81 (39-117) U/L Troponin T (<0.03) ng/mL Total Protein 7.1 (5.9-8.4) gm/dL Albumin 3.5 (3.2-5.2) gm/dL Globulin 3.6 (2.2-3.7) gm/dL Albumin/Globulin Ratio 1.0 (1.0-2.3) TSH 6.88 H (0.27-5.01) uIU/mL 06/19/20 Range/Units 14:48 WBC (4.5-11.0) K/mcL RBC (4.50-5.90) M/mcL Hgb (13.5-16.5) g/dL Hct (41.0-55.0) % MCV (80.0-100.0) fL MCH (26.0-34.0) pg MCHC (31.0-36.0) g/dL RDW (11.5-14.5) % Plt Count (140-440) K/mcL MPV (7.4-10.4) fL Neut % (Auto) (38.0-78.0) % Lymph % (Auto) (15.0-49.0) % [place] % (Auto) (1.0-12.0) % Eos % (Auto) (0.0-7.0) % Baso % (Auto) (0.0-2.0) % Lymph # (Auto) (1.50-4.80) K/mcL [place] # (Auto) (0.10-0.90) K/mcL Eos # (Auto) (0.00-0.70) K/mcL Baso # (Auto) (0.00-0.20) K/mcL Absolute Neutrophils (1.80-8.00) K/mcL D-Dimer (0.27-0.50) ug/mL Sodium (133-145) mmol/L Potassium (3.3-5.1) mmol/L Chloride (96-108) mmol/L Carbon Dioxide (22-30) mmol/L Anion Gap (8.0-16.0) BUN (8-23) mg/dL Creatinine (0.7-1.2) mg/dL GFR Calculation Glucose (70-105) mg/dL Calcium (8.6-10.4) mg/dL Magnesium (1.6-2.5) mg/dL Total Bilirubin (0.1-1.0) mg/dL AST (<40) U/L ALT (<40) U/L Alkaline Phosphatase (39-117) U/L Troponin T < 0.01 (<0.03) ng/mL Total Protein (5.9-8.4) gm/dL Albumin (3.2-5.2) gm/dL Globulin (2.2-3.7) gm/dL Albumin/Globulin Ratio (1.0-2.3) TSH (0.27-5.01) uIU/mL Radiology Data Radiology results reviewed: Yes I reviewed the patient's radiology results. Radiology results narrative: Chest x-ray shows improvement in bibasilar infiltrates from previous last month EKG Data EKG #1: EKG attestation: Yes I reviewed and interpreted this EKG. EKG results narrative: EKG shows rate in the 140s this does look like atrial flutter fibrillation with rapid ventricular response-the machine is calling it sinus tachycardia with a left bundle branch block, but I do not think this is correct because this is actually a wide complex. Previous EKG from 05/22 shows similar EKG #2: EKG attestation: Yes I reviewed and interpreted this EKG. EKG results narrative: EKG shows spontaneous conversion to sinus rhythm likely left atrial enlargement borderline T waves in the inferior leads and lateral leads-rate of 74 Discharge Plan Patient/Caregiver Discharge Instructions Pt seen by GIS MAPPING TECHNICIAN/PA only: No Clinical Impression: Atrial fibrillation with rapid ventricular response, Acute dehydration, Hypothyroidism (acquired), Hypomagnesemia Patient Disposition: Xfer As Inpt ([facility]) Condition: Fair Follow up with: German West DO [Primary Care Provider] - Prescriptions: No Action (DME) insulin syringe-needle U-100 [BD Insulin Syringe Ult-Fine II] 1 mL 31 gauge x 5/16 syringe See Dose Instructions .ROUTE .MEDSUPPLY MDD twice daily Qty: 100 RF: 7 (DME) pen needle, diabetic [BD Ultra-Fine Chel Pen Needle] 32 gauge x 5/32" needle See Dose Instructions .ROUTE .MEDSUPPLY Qty: 200 RF: 3 (DME) True Metrix Glucose Test Strip Strip See Dose Instructions .ROUTE .MEDSUPPLY Qty: 100 RF: 6 Lantus Solostar U-100 Insulin 100 unit/mL (3 mL) insulin pen 25 unit SUB-Q BID Qty: 45 RF: 4 atorvastatin 20 mg tablet 20 mg PO QDAY Qty: 90 RF: 1 clopidogrel 75 mg tablet 75 mg PO QDAY Qty: 90 RF: 1 metformin 1,000 mg tablet 1,000 mg PO BID Qty: 180 RF: 1 cholecalciferol (vitamin D3) 1,000 unit capsule 1,000 unit PO QDAY RF: 0 lisinopril 5 mg tablet 5 mg PO QDAY Qty: 30 RF: 2 albuterol sulfate 90 mcg/actuation HFA aerosol inhaler 2 puff INHALATION Q4H Qty: 18 RF: 3 (DME) Nebulizer Qty: 1 RF: 0 (DME) Nebulizer tubing and spacer Qty: 1 RF: 0 ipratropium-albuterol 0.5 mg-3 mg(2.5 mg base)/3 mL solution for nebulization 3 ml INHALATION Q6H PRN (Reason: shortness of breath or wheezing) Qty: 180 RF: 3 carvedilol 3.125 mg tablet 12.5 mg PO BIDCC Qty: 60 RF: 2 doxycycline hyclate 100 mg capsule 100 mg PO BID Qty: 14 RF: 0 aspirin [Adult Low Dose Aspirin] 81 mg tablet,delayed release (DR/EC) 81 mg PO QDAY RF: 0
[2020-06-19 15:22] LABS: Basophils # (Auto) 0.07 K/mcL (0.00-0.20); Basophils % (Auto) 0.6 % (0.0-2.0); Eosinophils # (Auto) 0.31 K/mcL (0.00-0.70); Eosinophils % (Auto) 2.8 % (0.0-7.0); Hematocrit 44.9 % (41.0-55.0); Hemoglobin 14.4 g/dL (13.5-16.5); Lymphocytes # (Auto) 3.95 K/mcL (1.50-4.80); Lymphocytes % (Auto) 35.2 % (15.0-49.0); Mean Cell Volume 89.6 fL (80.0-100.0); Mean Corpuscular HGB Conc 32.1 g/dL (31.0-36.0); Mean Platelet Volume 10.5 fL (7.4-10.4); Neutrophils % (Auto) 53.4 % (38.0-78.0); Platelet Count 281 K/mcL (140-440); RBC 5.01 M/mcL (4.50-5.90); Red Cell Distribution Width 14.1 % (11.5-14.5); WBC 11.2 K/mcL (4.5-11.0)
[2020-06-19] MEDS ORDERED: DILTIAZEM 25 MG/5 ML VIAL IV ONE (15:31)
[2020-06-19] MEDS ORDERED: DILTIAZEM 125 MG in DEXTROSE 5% IN WATER 100 ML IV SCH ×2 (15:45→17:45)
[2020-06-19 15:56] LABS: ALT/SGPT 14 U/L (<40); AST/SGOT 20 U/L (<40); Albumin 3.5 gm/dL (3.2-5.2); Alkaline Phosphatase 81 U/L (39-117); Bilirubin,Total 0.3 mg/dL (0.1-1.0); Blood Urea Nitrogen 15 mg/dL (8-23); Calcium 9.2 mg/dL (8.6-10.4); Carbon Dioxide 20 mmol/L (22-30); Chloride 103 mmol/L (96-108); Globulin 3.6 gm/dL (2.2-3.7); Glomerular Filtration Rate 70; Glucose 71 mg/dL (70-105); Thyroid Stimulating Hormone 6.88 uIU/mL (0.27-5.01)
--- NOTE | 2020-06-19 16:03 | XRay Report ---
CLINICAL INFORMATION: dysrhythmia COMPARISON: 06/12/2020 FINDINGS: Heart size, mediastinum and pulmonary vessels are normal. Left basilar infiltrate has almost cleared. Small patchy right basilar infiltrate has improved. No effusion IMPRESSION: Improvement in bibasilar infiltrates. Interpreted and Authenticated by: German Rodgers 06/19/20
[2020-06-19] MEDS ORDERED: MAGNESIUM SULFATE 8.12 MEQ in DEXTROSE 5% IN WATER 50 ML IV ONE (16:16)
[2020-06-19] MEDS ORDERED: morphine 2 MG/ML VIAL IV PRN ×2 (17:21→18:46)
[2020-06-19] MEDS ORDERED: LEVALBUTEROL 0.63 MG/3 ML AMPUL.NEB NEB PRN ×2 (17:21→18:46)
[2020-06-19] MEDS ORDERED: PROMETHAZINE 25 MG TABLET PO PRN ×2 (17:21→18:46)
[2020-06-19] MEDS ORDERED: IPRATROPIUM/ALBUTEROL 3 ML AMPUL.NEB NEB PRN ×2 (17:21→18:46)
[2020-06-19] MEDS ORDERED: SENNOSIDES 1 TABLET PO PRN ×2 (17:21→18:46)
[2020-06-19] MEDS ORDERED: ACETAMINOPHEN W/CODEINE #3 1 TABLET PO PRN ×2 (17:21→18:46)
[2020-06-19] MEDS ORDERED: CARVEDILOL 3.125 MG TABLET PO SCH (17:30)
[2020-06-19] MEDS ORDERED: DEXTROSE 31 GM ORAL.SUSP PO PRN ×2 (17:37→18:46)
[2020-06-19] MEDS ORDERED: DEXTROSE 50% 50 ML VIAL IV PRN ×2 (17:37→18:46)
--- NOTE | 2020-06-19 17:59 | Internal Med History&Physical ---
HPI History of Present Illness Patient information: Note initiated : 06/19/20 at 5:43 pm Service Date, if different from initiated Date: [] Patient: Adina Guerrero 64 y/o M admitted on for tachycardia. Chief Complaint: [] History of present illness: Mr. Guerrero is a 64 year old M with a past medical history of atrial fibrillation, COPD, tobacco dependence, high blood pressure, and diabetes who was brought to the ER due to shortness of breath. As per patient, patient started to have shortness of breath this morning about 10 AM. He went to see Dr. West's office where he was found to have tachycardia 140s to 150s. He was referred to the ER. In the ER, he was found to have will atrial fibrillation. But it was converted to to sinus rhythm and then to atrial flutter. Diltiazem 5 mg bolus was given followed by diltiazem drip. Patient a lso complained of mid lower chest pain which started this morning. The pain is constant, dull in nature and 2 out of 10 in severity. Patient has been dry coughing for 2 weeks. When I saw this patient in the ER, other than the symptoms mentioned above, he also complained of mild dizziness. Denied headache, fever, chills, abdominal pain, or dysuria. Review of Systems Review of systems: Positive for shortness of breath. All other systems were reviewed and negative PFSH PFSH All Active Problems Acute dehydration (Acute) Hypothyroidism (acquired) (Acute) Hypomagnesemia (Acute) COPD (chronic obstructive pulmonary disease) (Acute) Cerumen impaction (Acute) Transition of care performed with sharing of clinical summary (Acute) Pneumonia (Acute) Atrial fibrillation with rapid ventricular response (Acute) Respiratory distress (Acute) Tachycardia (Acute) Chronic lumbar pain (Acute) Obesity (BMI 30-39.9) (Chronic) Right shoulder pain (Acute) Orthopnea (Acute) Coronary artery disease (Chronic) Healthcare maintenance (Chronic) Tobacco abuse (Chronic) Hyperlipidemia (Chronic) Hypertension, essential (Chronic) Irregular heart beat (Chronic) DMII (diabetes mellitus, type 2) (Chronic) Medical History Coronary artery disease (Chronic) DMII (diabetes mellitus, type 2) (Chronic) Hyperlipidemia (Chronic) Hypertension, essential (Chronic) Irregular heart beat (Chronic) Respiratory distress (Acute) Tachycardia (Acute) Tobacco abuse (Chronic) Surgical History No pertinent past surgical history (Chronic) Family History Mother Arthritis Diabetes Hypertension, essential Father Arthritis Diabetes Hypertension, essential Sister Arthritis Uterine cancer Diabetes Grandmother Cancer Maternal Grandmother Arthritis Paternal Family/Other Brain cancer Uncle Brother Diabetes Heart attack CHF (congestive heart failure) Social History marital status: single smoking status: Current every day smoker tobacco type: cigarettes alcohol intake frequency: does not drink substance use type: does not use MEDS/ALLERGIES Home Medications and Allergies Home Medications Medication Instructions Recorded Confirmed Type insulin syringe-needle U-100 1 mL #100 each 04/15/17 06/19/20 Rx 31 gauge x 5/16" pen needle, diabetic 32 gauge x #200 each 11/19/19 06/19/20 Rx 5/32" blood sugar diagnostic #100 each 12/22/19 06/19/20 Rx insulin glargine 100 unit/mL (3 25 unit SUB-Q BID #45 ml 01/23/20 06/19/20 Rx mL) subcutaneous pen atorvastatin 20 mg tablet 20 mg PO QDAY #90 tab 03/15/20 06/19/20 Rx clopidogrel 75 mg tablet 75 mg PO QDAY #90 tab 03/15/20 06/19/20 Rx albuterol sulfate 90 mcg/actuation 2 puff INHALATION Q4H #18 g 06/05/20 06/19/20 Rx aerosol inhaler metformin 1,000 mg tablet 1,000 mg PO BID #180 tab 06/11/20 06/19/20 Rx Nebulizer #1 ea 06/12/20 06/19/20 Rx Nebulizer tubing and spacer #1 ea 06/12/20 06/19/20 Rx carvedilol 3.125 mg tablet 12.5 mg PO BIDCC #60 tab 06/12/20 06/19/20 Rx ipratropium 0.5 mg-albuterol 3 mg 3 ml INHALATION Q6H PRN #180 ml 06/12/20 06/19/20 Rx (2.5 mg base)/3 mL nebulization soln lisinopril 2.5 mg PO QDAY 06/19/20 06/19/20 History Allergies Allergy/AdvReac Type Severity Reaction Status Date / Time No Known Drug Allergies Allergy Verified 06/19/20 14:31 EXAM Constitutional Vitals: Temp Pulse Resp BP Pulse Ox 97.7 F 72 20 133/83 92 06/19/20 14:26 06/19/20 17:32 06/19/20 17:32 06/19/20 17:32 06/19/20 17:32 Additional findings Additional findings: Physical exam: General: No acute distress Eye: EMOI, no conjunctival injection. HEENT: supple, no JVD or thyroid megaly Chest: No tenderness Heart: RRR, no gallop Lungs: Rhonchi bilateral Abdomen: Normal bowel sounds, soft, no tenderness Extremities: edema + in both legs, no cyanosis or clubbing Neurology: A+O x 3, no focal neurological deficits Psych: Normal mood DATA Data Completed and Pending Labs: Labs from last 24 hours 06/19/20 06/19/20 06/19/20 17:36 17:36 17:36 WBC RBC Hgb Hct MCV MCH MCHC RDW Plt Count MPV Neut % (Auto) Lymph % (Auto) [place] % (Auto) Eos % (Auto) Baso % (Auto) Lymph # (Auto) [place] # (Auto) Eos # (Auto) Baso # (Auto) Absolute Neutrophils D-Dimer Sodium Pending Potassium Pending Chloride Pending Carbon Dioxide Pending Anion Gap Pending BUN Pending Creatinine Pending GFR Calculation Pending Glucose Pending Calcium Pending Magnesium Total Bilirubin Pending AST Pending ALT Pending Alkaline Phosphatase Pending Troponin T Pending NT-Pro-B Natriuret Pep Pending Total Protein Pending Albumin Pending Globulin Pending Albumin/Globulin Ratio Pending TSH 06/19/20 06/19/20 06/19/20 14:48 14:48 14:48 WBC RBC Hgb Hct MCV MCH MCHC RDW Plt Count MPV Neut % (Auto) Lymph % (Auto) [place] % (Auto) Eos % (Auto) Baso % (Auto) Lymph # (Auto) [place] # (Auto) Eos # (Auto) Baso # (Auto) Absolute Neutrophils D-Dimer 0.54 H Sodium 137 Potassium 4.9 Chloride 103 Carbon Dioxide 20 L Anion Gap 14.0 BUN 15 Creatinine 1.1 GFR Calculation 70 Glucose 71 Calcium 9.2 Magnesium 1.3 L Total Bilirubin 0.3 AST 20 ALT 14 Alkaline Phosphatase 81 Troponin T < 0.01 NT-Pro-B Natriuret Pep Total Protein 7.1 Albumin 3.5 Globulin 3.6 Albumin/Globulin Ratio 1.0 TSH 6.88 H 06/19/20 14:48 WBC 11.2 H RBC 5.01 Hgb 14.4 Hct 44.9 MCV 89.6 MCH 28.7 MCHC 32.1 RDW 14.1 Plt Count 281 MPV 10.5 H Neut % (Auto) 53.4 Lymph % (Auto) 35.2 [place] % (Auto) 8.0 Eos % (Auto) 2.8 Baso % (Auto) 0.6 Lymph # (Auto) 3.95 [place] # (Auto) 0.90 Eos # (Auto) 0.31 Baso # (Auto) 0.07 Absolute Neutrophils 5.98 D-Dimer Sodium Potassium Chloride Carbon Dioxide Anion Gap BUN Creatinine GFR Calculation Glucose Calcium Magnesium Total Bilirubin AST ALT Alkaline Phosphatase Troponin T NT-Pro-B Natriuret Pep Total Protein Albumin Globulin Albumin/Globulin Ratio TSH A/P Narrative A/P Narrative: 1. Tachycardiac arrhythmia Paroxysmal atrial fibrillation/flutter with RVR Pt was admitted to the hospital on 05/22/2020 for bilateral pneumonia and A. fib with RVR. He is not anticoagulated Diltiazem 5mg x 1 was given in the ER. Continue diltiazem drip Dicontinued carvedilol 3.125 mg twice daily. Started on metoprolol 12.5 mg twice daily Therapeutic Lovenox 100 mg every 12 hours Urine drug screen 2. Chest pain EKG showed RBBB which also present on the EKG on May 22, 2020. No ST elevation Troponin Before I admitted this patient patient, I discussed with him that there is no cardiac a stress test available at this hospital. He fully understood this. Continue aspirin and Plavix. Increase the Lipitor to 40 mg daily from 20 mg daily Lipid profile Hemoglobin A1c 3. Hx of COPD Continue inhalers 4. Tobacco dependence Smoking cessation counseling Nicotine patch if necessary 5. CAD Aspirin, Plavix, Lipitor 6. HTN Metoprolol 12.5 mg. Increased isinopril 5 mg to 10 mg daily 7. DM type 2 Diabetic diet Continue Lantus to 25 mg twice daily Insulin sliding scale 8. elevation of TSH TSH 6.88 I will start low-dose of Synthroid 25 MCG daily Repeat TSH in 1 month 9. Leukocytosis Repeat CBC in morning 10. Elevation of D-dimer, 0.54. It was 0.51 on 05/24/2020 I would not like to order a CT angio for him. Instead I will start therapeutic Lovenox for him 11. Hypomagnesemia Mag was given in the ER Repeat mag in the morning 12. DVT prophylaxis: Lovenox 13. CODE STATUS: Scrap Metal Burner Spent With Patient Time: Total time spent is greater than 50% in coordination of care (as documented) at patient's floor/unit and/or counseling patient:
[2020-06-19 18:24] LABS: Amphetamine Screen,Urine None detected; Barbiturate Screen,Urine None detected; Benzodiazepines Screen,Urine None detected; Cannabinoid Screen,Urine None detected; Cocaine Screen,Urine None detected; Opiate Screen,Urine None detected; Oxycodone, Urine Screen None detected; Phencyclidine Screen,Urine None detected
[2020-06-19 18:55] LABS: ALT/SGPT 12 U/L (<40); AST/SGOT 15 U/L (<40); Albumin 3.6 gm/dL (3.2-5.2); Albumin/Globulin Ratio 1.2 (1.0-2.3); Alkaline Phosphatase 82 U/L (39-117); Bilirubin,Total 0.2 mg/dL (0.1-1.0); Blood Urea Nitrogen 15 mg/dL (8-23); Calcium 8.8 mg/dL (8.6-10.4); Carbon Dioxide 25 mmol/L (22-30); Chloride 101 mmol/L (96-108); Globulin 2.9 gm/dL (2.2-3.7); Glomerular Filtration Rate 78; Glucose 71 mg/dL (70-105)
[2020-06-19] MEDS: INSULIN LISPRO 1 UNIT/0.01 ML UNIT SQ SCH (20:08)
[2020-06-19] MEDS ORDERED: DOCUSATE SODIUM 100 MG CAPSULE PO SCH (21:00)
[2020-06-19] MEDS ORDERED: INSULIN LISPRO 1 UNIT/0.01 ML UNIT SQ SCH (21:00)
[2020-06-19] MEDS ORDERED: LEVOTHYROXINE 25 MCG TABLET PO SCH ×2 (21:00)
[2020-06-19] MEDS ORDERED: INSULIN GLARGINE, HUMAN 1 UNIT/0.01 ML SQ SCH (21:00)
[2020-06-19] MEDS ORDERED: ENOXAPARIN 100 MG/ML SYRINGE SQ SCH (21:00)
[2020-06-19] MEDS ORDERED: METOPROLOL TARTRATE 25 MG TABLET PO SCH (21:00)
--- NOTE | 2020-06-19 21:02 | Event Note ---
Event Note Event Note: Advanced care plan: I explained CRP and intubation in details to pt who agreed with CPR and intubation.
[2020-06-19] MEDS ORDERED: 0.9 % SODIUM CHLORIDE 10 ML SYRINGE IV SCH (22:00)
[2020-06-19] MEDS: INSULIN GLARGINE, HUMAN 1 UNIT/0.01 ML SQ SCH (22:15)
[2020-06-19] MEDS: METOPROLOL TARTRATE 25 MG TABLET PO SCH (22:16)
[2020-06-19] MEDS: ENOXAPARIN 100 MG/ML SYRINGE SQ SCH (22:16)
[2020-06-19] MEDS: DOCUSATE SODIUM 100 MG CAPSULE PO SCH (22:17)
[2020-06-19] MEDS: 0.9 % SODIUM CHLORIDE 10 ML SYRINGE IV SCH (22:17)
[2020-06-20] MEDS: 0.9 % SODIUM CHLORIDE 10 ML SYRINGE IV SCH (05:38)
[2020-06-20] MEDS ORDERED: DILTIAZEM 125 MG in DEXTROSE 5% IN WATER 100 ML IV SCH (05:45)
[2020-06-20 07:03] LABS: Estimated Average Glucose(eAG) 143 mg/dL; Hemoglobin A1C 6.6 % Hgb (4.0-6.0)
[2020-06-20 07:10] LABS: proBNP 264.9 pg/mL (<125.0)
[2020-06-20 07:29] LABS: HDL Cholesterol 30 mg/dL (>40); LDL Cholesterol,Calculated 52 mg/dL (<100); Non-HDL Cholesterol 77 mg/dL (<130); Triglycerides 130 mg/dL (<150)
[2020-06-20] MEDS: INSULIN LISPRO 1 UNIT/0.01 ML UNIT SQ SCH ×2 (08:35→12:10)
[2020-06-20] MEDS: ENOXAPARIN 100 MG/ML SYRINGE SQ SCH (08:40)
[2020-06-20] MEDS: METOPROLOL TARTRATE 25 MG TABLET PO SCH (08:40)
[2020-06-20] MEDS: DOCUSATE SODIUM 100 MG CAPSULE PO SCH (08:40)
[2020-06-20] MEDS: INSULIN GLARGINE, HUMAN 1 UNIT/0.01 ML SQ SCH ×2 (08:41→12:10)
[2020-06-20] MEDS ORDERED: LISINOPRIL 5 MG TABLET PO SCH ×3 (09:00)
[2020-06-20] MEDS ORDERED: VITAMIN D3 1,000 UNIT TABLET PO SCH ×2 (09:00)
[2020-06-20] MEDS ORDERED: ASPIRIN 81 MG TAB.CHEW PO SCH ×2 (09:00)
[2020-06-20] MEDS ORDERED: ATORVASTATIN 20 MG TABLET PO SCH ×2 (09:00)
[2020-06-20] MEDS ORDERED: CLOPIDOGREL 75 MG TABLET PO SCH ×2 (09:00)
[2020-06-20] MEDS ORDERED: MAGNESIUM SULFATE 8.12 MEQ in DEXTROSE 5% IN WATER 50 ML IV ONE (12:00)
--- NOTE | 2020-06-20 13:08 | Discharge Summary ---
Discharge Provider Provider Patient information: Note initiated : 06/20/20 at 1:07 pm Service Date, if different from initiated Date: [] Patient: Adina Guerrero 64 y/o M admitted on 06/20/20 for tachycardia. Chief Complaint: [] Date of admission: 06/20/20 10:22 Discharge date: 06/20/20 Primary care physician: German West DO Consults: 06/19/20 Consult to Physician [CONS] Stat Comment: Consulting Provider: Josh Mcmanus Reason For Exam: Physician to Consult Discharge Meds Discharge Medications Home Medications pen needle, diabetic 32 gauge x 32" #200 each 11/19/19 [Rx Confirmed 06/19/20 Last Taken Unknown] insulin glargine 100 unit/mL (3 mL) subcutaneous pen 25 unit SUB-Q BID #45 ml 01/23/20 [Rx Confirmed 06/19/20 Last Taken Unknown] clopidogrel 75 mg tablet 75 mg PO QDAY #90 tab 03/15/20 [Rx Confirmed 06/19/20 Last Taken Unknown] Nebulizer tubing and spacer #1 ea 06/12/20 [Rx Confirmed 06/19/20 Last Taken Unknown] ipratropium 0.5 mg-albuterol 3 mg (2.5 mg base)/3 mL nebulization soln 3 ml INHALATION Q6H PRN #180 ml 06/12/20 [Rx Confirmed 06/19/20 Last Taken Unknown] lisinopril 2.5 mg PO QDAY 06/19/20 [History Confirmed 06/19/20 Last Taken Unknown] aspirin 81 mg PO DAILY #30 tab 06/20/20 [Rx Last Taken Unknown] atorvastatin 40 mg PO QDAY #30 tab 06/20/20 [Rx Last Taken Unknown] cholecalciferol (vitamin D3) 1,000 unit PO DAILY #30 tab 06/20/20 [Rx Last Taken Unknown] enoxaparin 100 mg SQ BID #10 ml 06/20/20 [Rx Last Taken Unknown] ipratropium-albuterol 3 ml INHALATION Q6HRT 30 Days #10 ml 06/20/20 [Rx Last Taken Unknown] levalbuterol HCl 0.63 mg NEB Q4HRT PRN #10 ml 06/20/20 [Rx Last Taken Unknown] levothyroxine 25 mcg PO HS #30 tab 06/20/20 [Rx Last Taken Unknown] lisinopril 10 mg PO QDAY 30 Days #60 tab 06/20/20 [Rx Last Taken Unknown] metoprolol tartrate 12.5 mg PO BID #60 tab 06/20/20 [Rx Last Taken Unknown] COURSE Hospital Course Hospital course: Mr. Guerrero is a 64 year old M with a past medical history of atrial fibrillation, COPD, tobacco dependence, high blood pressure, and diabetes who was brought to the ER due to shortness of breath. As per patient, patient started to have shortness of breath this morning about 10 AM. He went to see Dr. West's office where he was found to have tachycardia 140s to 150s. He was referred to the ER. In the ER, he was found to have will atrial fibrillation. But it was converted to to sinus rhythm and then to atrial flutter. Diltiazem 5 mg bolus was given followed by diltiazem drip. Patient also complained of mid lower chest pain which started this morning. The pain is constant, dull in nature and 2 out of 10 in severity. Patient has been dry coughing for 2 weeks. When I saw this patient in the ER, other than the symptoms mentioned above, he also complained of mild dizziness. Denied headache, fever, chills, abdominal pain, or dysuria. 1. Tachycardiac arrhythmia Paroxysmal atrial fibrillation/flutter with RVR Non sustained Wide complex V tachy Pt was admitted to the hospital on 05/22/2020 for bilateral pneumonia and A. fib with RVR. He is not anticoagulated Diltiazem 5mg x 1 was given in the ER. Continue diltiazem drip Discontinued carvedilol 3.125 mg twice daily. Started on metoprolol 12.5 mg twice daily Therapeutic Lovenox 100 mg every 12 hours 2. Chest pain EKG showed RBBB which also present on the EKG on May 22, 2020. No ST elevation Troponin negative x 4 Continue aspirin and Plavix. Increase the Lipitor to 40 mg daily from 20 mg daily Lipid profile - LDL 52, HDL 30 Hemoglobin A1c 6.6 3. Hx of COPD Continue inhalers 4. Tobacco dependence Smoking cessation counseling Nicotine patch if necessary 5. CAD Aspirin, Plavix, Lipitor 6. HTN Metoprolol 12.5 mg. Increased isinopril 5 mg to 10 mg daily 7. DM type 2 A1c 6.6 Diabetic diet Continue Lantus to 25 mg twice daily Insulin sliding scale 8. elevation of TSH TSH 6.88 I will start low-dose of Synthroid 25 MCG daily Repeat TSH in 1 month 9. Leukocytosis Monitor 10. Elevation of D-dimer, 0.54. It was 0.51 on 05/24/2020 I would not like to order a CT angio for him. Instead I will start therapeutic Lovenox for him 11. Hypomagnesemia Mag was given in the ER 1.7 today. Ig Mag was ordered. Repeat Mag in am Today patient denies chest pain. No headache, dizziness, abdominal pain, or dysuria. Considering that patient had chest pain yesterday, LBBB on EKG (first EKG in the ER showed LBBB, LBBB this on second EKG and LBBB showed on third EKG again. She had a LBBB on May 22). He developed nonsustained wide complex V. tach last night. He has a history of diabetes, high blood pressure, and cigarette smoker. He is medically noncompliant. So I feel that patient needs a potato loader. I spoke to potato loader Dr. Morley and hosptialist Dr. Lawrence at [facility] who accepted the pt. Discussed with pt who agreed with the plan. Discharge diagnosis: atrial fibrillation with RVR, chest pain with LBBB Time Spent with Patient Time attestation: Total time spent providing and/or coordinating discharge services: EXAM Constitutional Vitals: Temp Pulse Resp BP Pulse Ox 97.9 F 67 19 119/76 97 06/20/20 08:02 06/20/20 07:24 06/20/20 11:02 06/20/20 11:02 06/20/20 11:52 Additional findings Additional findings: General: No acute distress Eye: EMOI, no conjunctival injection. HEENT: supple, no JVD or thyroid megaly Chest: No tenderness Heart: irregular irregular, no gallop Lungs: Rhonchi bilateral Abdomen: Normal bowel sounds, soft, no tenderness Extremities: edema + in both legs, no cyanosis or clubbing Neurology: A+O x 3, no focal neurological deficits Psych: Normal mood Discharge Data Data Completed and Pending Labs on day of discharge: Labs from last 24 hours 06/20/20 06/20/20 06/19/20 05:10 05:10 23:35 WBC RBC Hgb Hct MCV MCH MCHC RDW Plt Count MPV Neut % (Auto) Lymph % (Auto) Grady % (Auto) Eos % (Auto) Baso % (Auto) Lymph # (Auto) Grady # (Auto) Eos # (Auto) Baso # (Auto) Absolute Neutrophils D-Dimer Sodium Potassium Chloride Carbon Dioxide Anion Gap BUN Creatinine GFR Calculation Glucose Hemoglobin A1c 6.6 H Estim Average Glucose 143 Calcium Magnesium 1.7 Total Bilirubin AST ALT Alkaline Phosphatase Troponin T < 0.01 < 0.01 NT-Pro-B Natriuret Pep 264.9 H Total Protein Albumin Globulin Albumin/Globulin Ratio Triglycerides 130 Cholesterol 107 LDL Cholesterol, Calc 52 Non-HDL Cholesterol 77 HDL Cholesterol 30 L TSH Urine Opiates Screen Ur Opiates Confirm Ur Oxycodone Screen Urine Methadone Screen Ur Methadone Confirm Ur Barbiturates Screen Ur Barbiturate Confirm Ur Phencyclidine Scrn Urine PCP Confirm Ur Amphetamines Screen U Amphetamines Confirm U Benzodiazepines Scrn U Benzodiazepine Confm Urine Cocaine Screen Urine Cocaine Confirm U Cannabinoids Confirm U Marijuana (THC) Screen 06/19/20 06/19/20 06/19/20 17:36 17:36 17:36 WBC RBC Hgb Hct MCV MCH MCHC RDW Plt Count MPV Neut % (Auto) Lymph % (Auto) Grady % (Auto) Eos % (Auto) Baso % (Auto) Lymph # (Auto) Grady # (Auto) Eos # (Auto) Baso # (Auto) Absolute Neutrophils D-Dimer Sodium 139 Potassium 4.7 Chloride 101 Carbon Dioxide 25 Anion Gap 13.0 BUN 15 Creatinine 1.0 GFR Calculation 78 Glucose 71 Hemoglobin A1c Estim Average Glucose Calcium 8.8 Magnesium Total Bilirubin 0.2 AST 15 ALT 12 Alkaline Phosphatase 82 Troponin T < 0.01 NT-Pro-B Natriuret Pep 362.2 H Total Protein 6.5 Albumin 3.6 Globulin 2.9 Albumin/Globulin Ratio 1.2 Triglycerides Cholesterol LDL Cholesterol, Calc Non-HDL Cholesterol HDL Cholesterol TSH Urine Opiates Screen Ur Opiates Confirm Ur Oxycodone Screen Urine Methadone Screen Ur Methadone Confirm Ur Barbiturates Screen Ur Barbiturate Confirm Ur Phencyclidine Scrn Urine PCP Confirm Ur Amphetamines Screen U Amphetamines Confirm U Benzodiazepines Scrn U Benzodiazepine Confm Urine Cocaine Screen Urine Cocaine Confirm U Cannabinoids Confirm U Marijuana (THC) Screen 06/19/20 06/19/20 06/19/20 15:00 14:48 14:48 WBC RBC Hgb Hct MCV MCH MCHC RDW Plt Count MPV Neut % (Auto) Lymph % (Auto) Grady % (Auto) Eos % (Auto) Baso % (Auto) Lymph # (Auto) Grady # (Auto) Eos # (Auto) Baso # (Auto) Absolute Neutrophils D-Dimer Sodium 137 Potassium 4.9 Chloride 103 Carbon Dioxide 20 L Anion Gap 14.0 BUN 15 Creatinine 1.1 GFR Calculation 70 Glucose 71 Hemoglobin A1c Estim Average Glucose Calcium 9.2 Magnesium 1.3 L Total Bilirubin 0.3 AST 20 ALT 14 Alkaline Phosphatase 81 Troponin T < 0.01 NT-Pro-B Natriuret Pep Total Protein 7.1 Albumin 3.5 Globulin 3.6 Albumin/Globulin Ratio 1.0 Triglycerides Cholesterol LDL Cholesterol, Calc Non-HDL Cholesterol HDL Cholesterol TSH 6.88 H Urine Opiates Screen None detected Ur Opiates Confirm Not Reportable Ur Oxycodone Screen None detected Urine Methadone Screen None detected Ur Methadone Confirm Not Reportable Ur Barbiturates Screen None detected Ur Barbiturate Confirm Not Reportable Ur Phencyclidine Scrn None detected Urine PCP Confirm Not Reportable Ur Amphetamines Screen None detected U Amphetamines Confirm Not Reportable U Benzodiazepines Scrn None detected U Benzodiazepine Confm Not Reportable Urine Cocaine Screen None detected Urine Cocaine Confirm Not Reportable U Cannabinoids Confirm Not Reportable U Marijuana (THC) Screen None detected 06/19/20 06/19/20 14:48 14:48 WBC 11.2 H RBC 5.01 Hgb 14.4 Hct 44.9 MCV 89.6 MCH 28.7 MCHC 32.1 RDW 14.1 Plt Count 281 MPV 10.5 H Neut % (Auto) 53.4 Lymph % (Auto) 35.2 Grady % (Auto) 8.0 Eos % (Auto) 2.8 Baso % (Auto) 0.6 Lymph # (Auto) 3.95 Grady # (Auto) 0.90 Eos # (Auto) 0.31 Baso # (Auto) 0.07 Absolute Neutrophils 5.98 D-Dimer 0.54 H Sodium Potassium Chloride Carbon Dioxide Anion Gap BUN Creatinine GFR Calculation Glucose Hemoglobin A1c Estim Average Glucose Calcium Magnesium Total Bilirubin AST ALT Alkaline Phosphatase Troponin T NT-Pro-B Natriuret Pep Total Protein Albumin Globulin Albumin/Globulin Ratio Triglycerides Cholesterol LDL Cholesterol, Calc Non-HDL Cholesterol HDL Cholesterol TSH Urine Opiates Screen Ur Opiates Confirm Ur Oxycodone Screen Urine Methadone Screen Ur Methadone Confirm Ur Barbiturates Screen Ur Barbiturate Confirm Ur Phencyclidine Scrn Urine PCP Confirm Ur Amphetamines Screen U Amphetamines Confirm U Benzodiazepines Scrn U Benzodiazepine Confm Urine Cocaine Screen Urine Cocaine Confirm U Cannabinoids Confirm U Marijuana (THC) Screen Discharge Plan Patient/Caregiver Discharge Instructions Activity: increase activity as tolerated Diet: Consistent Carbohydrate Prescriptions: New atorvastatin 20 mg Tablet 40 mg PO QDAY Qty: 30 RF: 0 ipratropium-albuterol 0.5 mg-3 mg(2.5 mg base)/3 mL Solution For Nebulization 3 ml inhalation Q6HRT 30 Days Qty: 10 RF: 0 levalbuterol HCl 0.63 mg/3 mL Solution For Nebulization 0.63 mg NEB Q4HRT PRN (Reason: Shortness Of Breath Or Wheezing) Qty: 10 RF: 0 levothyroxine 25 mcg Tablet 25 mcg PO HS Qty: 30 RF: 0 aspirin 81 mg Tablet,Chewable 81 mg PO DAILY Qty: 30 RF: 0 lisinopril 5 mg Tablet 10 mg PO QDAY 30 Days Qty: 60 RF: 0 enoxaparin 100 mg/mL Syringe 100 mg SQ BID Qty: 10 RF: 0 metoprolol tartrate 25 mg Tablet 12.5 mg PO BID Qty: 60 RF: 0 cholecalciferol (vitamin D3) 25 mcg (1,000 unit) Tablet 1,000 unit PO DAILY Qty: 30 RF: 0 Continued (DME) pen needle, diabetic [BD Ultra-Fine Chel Pen Needle] 32 gauge x 5/32" needle See Dose Instructions .ROUTE .MEDSUPPLY Qty: 200 RF: 3 Lantus Solostar U-100 Insulin 100 unit/mL (3 mL) insulin pen 25 unit SUB-Q BID Qty: 45 RF: 4 clopidogrel 75 mg tablet 75 mg PO QDAY Qty: 90 RF: 1 (DME) Nebulizer tubing and spacer Qty: 1 RF: 0 ipratropium-albuterol 0.5 mg-3 mg(2.5 mg base)/3 mL solution for nebulization 3 ml INHALATION Q6H PRN (Reason: shortness of breath or wheezing) Qty: 180 RF: 3 lisinopril 2.5 mg Tablet 2.5 mg PO QDAY RF: 0 Discontinued (DME) insulin syringe-needle U-100 [BD Insulin Syringe Ult-Fine II] 1 mL 31 gauge x 5/16 syringe See Dose Instructions .ROUTE .MEDSUPPLY MDD twice daily Qty: 100 RF: 7 (DME) True Metrix Glucose Test Strip Strip See Dose Instructions .ROUTE .MEDSUPPLY Qty: 100 RF: 6 atorvastatin 20 mg tablet 20 mg PO QDAY Qty: 90 RF: 1 metformin 1,000 mg tablet 1,000 mg PO BID Qty: 180 RF: 1 albuterol sulfate 90 mcg/actuation HFA aerosol inhaler 2 puff INHALATION Q4H Qty: 18 RF: 3 (DME) Nebulizer Qty: 1 RF: 0 carvedilol 3.125 mg tablet 12.5 mg PO BIDCC Qty: 60 RF: 2 Follow Up Plan Follow up with: German West DO [Primary Care Provider] - Patient Disposition: [facility] Prognosis: Fair Discharge Orders: Discharge Order (Routine); Ordered 06/20/20 Ordered By: Josh SCHWARTZ VTE Deep Vein Thrombosis/Pulmonary Embolism Present on Admission: No
== END 2020-06-20 14:00 | disposition short-term general hospital (02) | DRG 310 ==
LOC: ED 14:26 → INTOOBSV 18:30 → ICU 18:30
PROVIDERS: ADMIT Internal Medicine; ATTEND Internal Medicine